=== PATIENT | male | born 1935 | race Caucasian/White ===

== ENCOUNTER 2017-01-29 15:38 | Inpatient (IN) | payer OTHER, MEDICARE ==
[~2017-01-29] VITALS: Ht 177.8 cm; Wt 79.9 kg
[2017-01-29] MEDS ORDERED: SODIUM CHLORIDE 0.9% FLUSH 10 ML FLUSH IVF PRN (16:45)
[2017-01-29] MEDS ORDERED: FUROSEMIDE 40 MG/4 ML VIAL IVP ONE (16:45)
[2017-01-29 16:50] VITALS: BP 108/68; RESP 22
--- NOTE | 2017-01-29 16:59 | PD ---
HPI Chief Complaint: Respiratory Distress Time Seen by Provider: 16:36 Travel History International Travel<30 days: No Contact w/Intl Traveler<30days: No Traveled to known affect area: No History of Present Illness HPI The patient is a 81-year-old [place] male who presents to the emergency department via EMS for shortness of breath and altered mental status. The patient is a somewhat poor historian, is oriented to name, but not month, year, or place. According to EMS the patient was riding around with the family member doing errands throughout the day, with shortness of breath progressively worsened. The patient is unsure if he has any history of congestive heart failure, states he quit smoking several years ago, and has no history of COPD. The patient denies being on oxygen at home. The patient does admit to be mildly short of breath, but denies any chest pain, nausea, vomiting, or abdominal pain. The patient states he has a history of chronic edema to lower extremities, denies any known history of pulmonary embolism or DVT. However, patient is a poor historian. He does not know his current medications or allergies. [facility] Past Medical History Medical History: Unable to Obtain ?: Not Past Surgical History Surgical History: Unable to Obtain Social History Tobacco Use: No (states he quit smoking "years ago ".) Allergies-Medications (Allergen,Severity, Reaction): Coded Allergies: UNOBTAINABLE (Unverified , 01/29/17) Does not know drug allergies--AMS Review of Systems ROS Limitations: Poor Historian Except as stated in HPI: all other systems reviewed are Neg General / Constitutional: No: Fever HENT: No: Sore Throat Cardiovascular: No: Chest Pain or Discomfort Respiratory: Positive: Shortness of Breath Gastrointestinal: No: Nausea, Vomiting, Abdominal Pain Musculoskeletal: Positive: Edema Physical Exam Narrative GENERAL: Awake, alert, pleasant 81-year-old male who appears his stated age and is in no acute respiratory distress. SKIN: Focused skin assessment warm/dry. HEAD: Atraumatic. Normocephalic. EYES: No injection or drainage. ENT: No nasal bleeding or discharge. Mucous membranes pink and moist. NECK: Trachea midline. No JVD. CARDIOVASCULAR: Regular rate and rhythm. No murmur appreciated. Pacemaker in place left chest wall. Well-healed surgical scar midline. RESPIRATORY: Tachypnea with a respiratory rate of 22. Diminished breath sounds in the bases bilateral with crackles. GASTROINTESTINAL: Abdomen soft, edematous with edema noted over the lateral aspect. Well-healed midline scar. MUSCULOSKELETAL: Edema noted to lower extremities all the way to the hips. Right leg is more swollen than the left leg. Edema of the low back noted. NEUROLOGICAL: Awake and alert. No obvious cranial nerve deficits. Motor grossly within normal limits. Normal speech. Poor historian, knows name, but does not know the current month, year, or location. PSYCHIATRIC: Appears pleasantly confused. Data Data Last Documented VS Vital Signs Date Time Temp Pulse Resp B/P Pulse Ox O2 Delivery O2 Flow Rate FiO2 01/29/17 17:05 73 22 104/69 95 Nasal Cannula 4 Orders Complete Blood Count With Diff (01/29/17 16:44) Comprehensive Metabolic Panel (01/29/17 16:44) B-Type Natriuretic Peptide (01/29/17 16:44) Act Partial Throm Time (Ptt) (01/29/17 16:44) Prothrombin Time / Inr (Pt) (01/29/17 16:44) Magnesium (Mg) (01/29/17 16:44) Ckmb (Isoenzyme) Profile (01/29/17 16:44) Troponin I (01/29/17 16:44) Urinalysis - C+S If Indicated (01/29/17 16:44) Blood Culture (01/29/17 16:44) Iv Access Insert/Monitor (01/29/17 16:44) Electrocardiogram (01/29/17 16:44) Ecg Monitoring (01/29/17 16:44) Oximetry (01/29/17 16:44) Oxygen Administration (01/29/17 16:44) Chest, Single Ap (01/29/17 16:44) Us Leg Venous Doppler (01/29/17 16:44) Sodium Chloride 0.9% Flush (Ns Flush) (01/29/17 16:45) Furosemide Inj (Lasix Inj) (01/29/17 16:45) Lactic Acid (01/29/17 17:33) Ceftriaxone Inj (Rocephin Inj) (01/29/17 17:45) Azithromycin Inj (Zithromax Inj) (01/29/17 17:45) Aspirin Chew (Aspirin Chew) (01/30/17 09:00) CKMB (01/29/17 17:10) CKMB% (01/29/17 17:10) Labs Laboratory Tests Test 01/29/17 17:10 White Blood Count 3.7 TH/MM3 Red Blood Count 3.81 MIL/MM3 Hemoglobin 12.5 GM/DL Hematocrit 38.4 % Mean Corpuscular Volume 100.7 FL Mean Corpuscular Hemoglobin 32.7 PG Mean Corpuscular Hemoglobin 32.5 % Concent Red Cell Distribution Width 19.8 % Platelet Count 92 TH/MM3 Mean Platelet Volume 8.7 FL Neutrophils (%) (Auto) 81.6 % Lymphocytes (%) (Auto) 6.8 % Monocytes (%) (Auto) 9.0 % Eosinophils (%) (Auto) 0.4 % Basophils (%) (Auto) 2.2 % Neutrophils # (Auto) 3.0 TH/MM3 Lymphocytes # (Auto) 0.2 TH/MM3 Monocytes # (Auto) 0.3 TH/MM3 Eosinophils # (Auto) 0.0 TH/MM3 Basophils # (Auto) 0.1 TH/MM3 CBC Comment AUTO DIFF Prothrombin Time 16.4 SEC Prothromb Time International 1.5 RATIO Ratio Activated Partial 28.5 SEC Thromboplast Time Sodium Level 141 MEQ/L Potassium Level 4.7 MEQ/L Chloride Level 106 MEQ/L Carbon Dioxide Level 26.0 MEQ/L Anion Gap 9 MEQ/L Blood Urea Nitrogen 43 MG/DL Creatinine 2.55 MG/DL Estimat Glomerular Filtration 24 ML/MIN Rate Random Glucose 78 MG/DL Calcium Level 8.7 MG/DL Magnesium Level 2.0 MG/DL Total Bilirubin 1.9 MG/DL Aspartate Amino Transf 26 U/L (AST/SGOT) Alanine Aminotransferase 21 U/L (ALT/SGPT) Alkaline Phosphatase 54 U/L Total Creatine Kinase 129 U/L Troponin I 1.76 NG/ML B-Type Natriuretic Peptide 3224 PG/ML Total Protein 6.5 GM/DL Albumin 2.8 GM/DL [facility] Medical Decision Making Medical Screen Exam Complete: Yes Emergency Medical Condition: Yes Medical Record Reviewed: Yes Interpretation(s) EKG reveals electronic atrial pacemaker an electronic ventricular pacemaker with a rate of 75. No further analysis performed. Laboratory Tests Test 01/29/17 17:10 White Blood Count 3.7 TH/MM3 Red Blood Count 3.81 MIL/MM3 Hemoglobin 12.5 GM/DL Hematocrit 38.4 % Mean Corpuscular Volume 100.7 FL Mean Corpuscular Hemoglobin 32.7 PG Mean Corpuscular Hemoglobin 32.5 % Concent Red Cell Distribution Width 19.8 % Platelet Count 92 TH/MM3 Mean Platelet Volume 8.7 FL Neutrophils (%) (Auto) 81.6 % Lymphocytes (%) (Auto) 6.8 % Monocytes (%) (Auto) 9.0 % Eosinophils (%) (Auto) 0.4 % Basophils (%) (Auto) 2.2 % Neutrophils # (Auto) 3.0 TH/MM3 Lymphocytes # (Auto) 0.2 TH/MM3 Monocytes # (Auto) 0.3 TH/MM3 Eosinophils # (Auto) 0.0 TH/MM3 Basophils # (Auto) 0.1 TH/MM3 CBC Comment AUTO DIFF Prothrombin Time 16.4 SEC Prothromb Time International 1.5 RATIO Ratio Activated Partial 28.5 SEC Thromboplast Time Sodium Level 141 MEQ/L Potassium Level 4.7 MEQ/L Chloride Level 106 MEQ/L Carbon Dioxide Level 26.0 MEQ/L Anion Gap 9 MEQ/L Blood Urea Nitrogen 43 MG/DL Creatinine 2.55 MG/DL Estimat Glomerular Filtration 24 ML/MIN Rate Random Glucose 78 MG/DL Calcium Level 8.7 MG/DL Magnesium Level 2.0 MG/DL Total Bilirubin 1.9 MG/DL Aspartate Amino Transf 26 U/L (AST/SGOT) Alanine Aminotransferase 21 U/L (ALT/SGPT) Alkaline Phosphatase 54 U/L Total Creatine Kinase 129 U/L Troponin I 1.76 NG/ML B-Type Natriuretic Peptide 3224 PG/ML Total Protein 6.5 GM/DL Albumin 2.8 GM/DL Last Impressions Chest X-Ray 01/29/17 1644 Signed Impressions: Service Date/Time: Sunday, January 29, 2017 16:53 - CONCLUSION: Basilar consolidation, effusions and possible loculated effusion versus mass right lung base. Ranjith Ortiz MD Differential Diagnosis Differential diagnosis includes anasarca, ascites, pleural effusion, pulmonary embolism, congestive heart failure, pneumonia, bronchitis, hypoxia. Narrative Course IV was established, labs are drawn and sent, and the patient was placed on cardiac telemetry monitoring and continuous pulse oximetry monitoring. Chest x- ray was obtained. EKG was ordered and interpreted. The patient was administered Lasix 40 mg intravenously. Ultrasound of the right lower extremity was ordered. Chest x-ray reveals basilar consolidations and effusions. The patient was treated prophylactically for pneumonia while laboratory evaluation was pending. The patient's white count is mildly low. Troponin was elevated at 1.76, EKG is unhelpful as a reveals electronically paced rhythm. The patient denies any chest pain, does have shortness breath, but is a poor historian. There is no old EMR to compare his current labs. Cardiology was paged in regards to elevated troponin and BNP to evaluate if patient needs anticoagulation with Lovenox/Heparin. After discussion it was agreed we would not place the patient on Lovenox or heparin until further information was obtainable. We attempted to call family members, apparently there will be a family member who will arrive around 6:20 PM. The patient will be admitted to [facility] and the medical service. Physician Communication Physician Communication I discussed the patient with Dr. Banerjee who agrees with admission. I also discussed the patient with Dr. Hamilton. Diagnosis Primary Impression: NSTEMI (non-ST elevated myocardial infarction) Additional Impressions: Congestive heart failure Qualified Code: I50.9 - Congestive heart failure, unspecified congestive heart failure chronicity, unspecified congestive heart failure type Pleural effusion Admitting Information Admitting Physician Requests: Admit Condition: Stable Raul Hughes MD Jan 29, 2017 16:58
[2017-01-29 17:05] VITALS: BP 104/69; PULSE 73; RESP 22; O2SAT 95
[2017-01-29 17:17] LABS: BASOPHIL # 0.1 TH/MM3 (0-0.2); BASOPHIL % 2.2 % (0.0-2.0); EOSINOPHIL % 0.4 % (0.0-4.0); HEMATOCRIT 38.4 % (39.0-51.0); LYMPH % 6.8 % (9.0-44.0); LYMPHOCYTE # 0.2 TH/MM3 (1.0-4.8); MEAN CELL VOLUME 100.7 FL (80.0-100.0); MEAN CORPUSCULAR HEMOGLOBIN 32.7 PG (27.0-34.0); MEAN CORPUSCULAR HGB CONC 32.5 % (32.0-36.0); NEUT % 81.6 % (16.0-70.0); PLATELET COUNT 92 TH/MM3 (150-450); RED BLOOD COUNT 3.81 MIL/MM3 (4.50-5.90); RED CELL DISTRIBUTION WIDTH 19.8 % (11.6-17.2); WHITE BLOOD COUNT 3.7 TH/MM3 (4.0-11.0)
--- NOTE | 2017-01-29 17:23 | RADRPT ---
EXAM DATE/TIME: 01/29/2017 16:53 [facility] COMPARISON: No previous studies available for comparison. INDICATIONS : Shortness of breath. MEDICAL HISTORY : None. SURGICAL HISTORY : Pacemaker. CABG. ENCOUNTER: Initial ACUITY: 1 day PAIN SCORE: 0/10 LOCATION: Bilateral chest FINDINGS: There are bilateral effusions including a probable loculated effusion on the right. It is difficult t o exclude a right lung base mass versus pseudotumor. Cardiomegaly is present. A vascular clip overlie s the mediastinum. Aortic calcification, skin on the wires, and pacer/ICD device identified. There is consolidation at the bases. CONCLUSION: Basilar consolidation, effusions and possible loculated effusion versus mass right lung base. Ranjith Ortiz MD on January 29, 2017 at 17:21 Board Certified Radiologist. This report was verified electronically.
[2017-01-29 17:27] LABS: HEMO FLAGS AUTO DIFF
[2017-01-29 17:28] LABS: APTT (PATIENT) 28.5 SEC (24.3-30.1); INTERNATIONAL NORMALIZED RATIO 1.5 RATIO; PROTHROMBIN TIME - PATIENT 16.4 SEC (9.8-11.6)
[2017-01-29 17:42] LABS: ALKALINE PHOSPHATASE 54 U/L (45-117); ALT (GPT) 21 U/L (12-78); ANION GAP 9 MEQ/L (5-15); AST (GOT) 26 U/L (15-37); BLOOD UREA NITROGEN 43 MG/DL (7-18); CHLORIDE 106 MEQ/L (98-107); CREATINE KINASE 129 U/L (39-308); GLOMERULAR FILTRATION RATE 24 ML/MIN (>89); SODIUM (NA) 141 MEQ/L (136-145); TOTAL BILIRUBIN ADULT 1.9 MG/DL (0.2-1.0)
[2017-01-29 17:43] LABS: POTASSIUM 4.7 MEQ/L (3.5-5.1)
[2017-01-29] MEDS ORDERED: cefTRIAXone INJ 1,000 MG in SODIUM CHLORIDE 0.9% INJ 100 ML IV ONE (17:45)
[2017-01-29] MEDS ORDERED: AZITHROMYCIN INJ 500 MG in SODIUM CHLOR 0.9% 250 ML INJ 250 ML IV ONE (17:45)
[2017-01-29 17:55] LABS: CRENATED RBCS 1+ (NORMAL); KERATOCYTES 1+ (NORMAL); OVALOCYTES 1+ (NORMAL); PLATELET ESTIMATE SMEAR LOW (NORMAL); PLATELET MORPHOLOGY NORMAL (NORMAL); SCAN/DIFF AUTO DIFF CONFIRMED
[2017-01-29 17:59] LABS: CKMB 1.5 NG/ML (0.5-3.6)
--- NOTE | 2017-01-29 18:28 | RADRPT ---
EXAM DATE/TIME: 01/29/2017 17:12 [facility] COMPARISON: No previous studies available for comparison. INDICATIONS : Right leg swelling. MEDICAL HISTORY : Right leg swelling. Shortness of breath. SURGICAL HISTORY : Unable to obtain. ENCOUNTER: Initial ACUITY: 1 day PAIN SCORE: 110 LOCATION: Right leg. TECHNIQUE: Venous ultrasound of the leg was performed from the inguinal ligament to the proximal calf. Real-lena e, color Doppler and spectral tracing, compression and augmentation techniques were used. FINDINGS: There is normal compressibility of the deep venous system from the inguinal region to the proximal ca lf. No echogenic clot is seen in the lumen of the common femoral, femoral, popliteal, and posterior tibial veins. There is a normal response of the venous system to proximal and distal augmentation an d respiration. CONCLUSION: Normal examination. Benny Sharp MD on January 29, 2017 at 18:26 Board Certified Radiologist. This report was verified electronically.
[2017-01-29] MEDS ORDERED: ASPIRIN 81 MG CHEW TAB CHEW ONE (18:30)
[2017-01-29] MEDS: SODIUM CHLORID 0.9% 500 ML INJ 500 ML IV ONE ×2 (19:30→20:18)
--- NOTE | 2017-01-29 20:11 | HHI.HP ---
HPI Service [facility] Primary Care Physician Non-Staff Admission Diagnosis NSTEMI, CHF, dyspnea, renal insufficiency Diagnoses: (1) NSTEMI (non-ST elevated myocardial infarction) Diagnosis: Principal (2) CHF (congestive heart failure) Diagnosis: Principal (3) PNA (pneumonia) Diagnosis: Principal (4) Hypoxia Diagnosis: Principal (5) Lactic acidosis Diagnosis: Principal (6) Lung mass Diagnosis: Principal (7) Hypotension Diagnosis: Principal (8) Renal insufficiency Diagnosis: Principal (9) Pancytopenia Diagnosis: Principal Travel History International Travel<30 Days: No Contact w/Intl Traveler <30 Da: No Traveled to Known Affected Are: No History of Present Illness This is an 81-year-old male with w/ a PMH of HTN, Hyperlipidemia and CHF ( Unknown EF) who was brought to the ER by EMS secondary to AMS and SOB. History difficult to obtain from patient. Per EMS, family noted patient to have progressive SOB throughout the day. No reported fever, chills or chest pain. On arrival, O2 reportedly 70% on RA, currently 95% on 4L NC. BP 108/68, HR 73, Afebrile. While in ER, transient episode of hypotension w/ BP 80's systolic. WBC 3.7. Platelets 92. Hgb 12.5, no previous labs for comparison. Creatinine 2.55. Lactic Acid 2.8. Trop 1.76. BNP 3224. INR 1.5. U/a negative. Noted to have lower extremity edema, LE Doppler negative for DVT. CXR with basilar consolidation, effusions and possible loculated effusion versus mass right lung base. Dr. Hamilton consulted by ER physician, recommended holding off on anticoagulation for the moment. Review of Systems Except as stated in HPI: all other systems reviewed are Neg ROS: 14 point review of systems otherwise negative. Past Family Social History Past Medical History PMH: HTN, Hyperlipidemia and CHF (Unknown EF) Past Surgical History PAST SURGICAL HISTORY: Unknown Allergies: Coded Allergies: No Known Allergies (Unverified , 01/29/17) Family History PAST FAMILY HISTORY: Reviewed. No h/o DM or CAD Social History PAST SOCIAL HISTORY: Negative for alcohol, tobacco or drugs. Physical Exam Vital Signs Vital Signs Date Time Temp Pulse Resp B/P Pulse Ox O2 Delivery O2 Flow Rate FiO2 01/29/17 17:05 73 22 104/69 95 Nasal Cannula 4 01/29/17 17:05 95 Nasal Cannula 4 01/29/17 16:50 22 108/68 Nasal Cannula 4 01/29/17 16:50 95 Nasal Cannula 4 Physical Exam PE: GENERAL: Elderly, chronically ill-appearing black male in no acute distress. HEENT: PERRLA, EOMI. No scleral icterus or conjunctival pallor. No lid lag or facial droop. CARDIOVASCULAR: Regular rate and rhythm. No obvious murmurs to auscultation. No chest tenderness to palpation. RESPIRATORY: No obvious rhonchi or wheezing. Clear to auscultation. Breath sounds equal bilaterally. GASTROINTESTINAL: Abdomen soft, non-tender, nondistended. BS normal. MUSCULOSKELETAL: Extremities without clubbing, cyanosis. +2 pitting edema bilaterally. No obvious deformities. NEUROLOGICAL: Awake, alert and oriented to person only. No focal neurologic deficits. Moving both upper and lower extremities spontaneously. Laboratory Laboratory Tests Test 01/29/17 01/29/17 17:10 17:40 White Blood Count 3.7 Red Blood Count 3.81 Hemoglobin 12.5 Hematocrit 38.4 Mean Corpuscular Volume 100.7 Mean Corpuscular Hemoglobin 32.7 Mean Corpuscular Hemoglobin 32.5 Concent Red Cell Distribution Width 19.8 Platelet Count 92 Mean Platelet Volume 8.7 Neutrophils (%) (Auto) 81.6 Lymphocytes (%) (Auto) 6.8 Monocytes (%) (Auto) 9.0 Eosinophils (%) (Auto) 0.4 Basophils (%) (Auto) 2.2 Neutrophils # (Auto) 3.0 Lymphocytes # (Auto) 0.2 Monocytes # (Auto) 0.3 Eosinophils # (Auto) 0.0 Basophils # (Auto) 0.1 CBC Comment AUTO DIFF Differential Comment AUTO DIFF CONFIRMED Platelet Estimate LOW Platelet Morphology Comment NORMAL Ovalocytes 1+ Crenated Cell 1+ Keratocytes 1+ Prothrombin Time 16.4 Prothromb Time International 1.5 Ratio Activated Partial 28.5 Thromboplast Time Sodium Level 141 Potassium Level 4.7 Chloride Level 106 Carbon Dioxide Level 26.0 Anion Gap 9 Blood Urea Nitrogen 43 Creatinine 2.55 Estimat Glomerular Filtration 24 Rate Random Glucose 78 Calcium Level 8.7 Magnesium Level 2.0 Total Bilirubin 1.9 Aspartate Amino Transf 26 (AST/SGOT) Alanine Aminotransferase 21 (ALT/SGPT) Alkaline Phosphatase 54 Total Creatine Kinase 129 Creatine Kinase MB 1.5 Troponin I 1.76 B-Type Natriuretic Peptide 3224 Total Protein 6.5 Albumin 2.8 Lactic Acid Level 2.8 Date/Time Procedure Status Source Growth 01/29/17 17:10 Aerobic Blood Culture Received Blood Peripheral Pending 01/29/17 17:10 Anaerobic Blood Culture Received Blood Peripheral Pending Result Diagram: 01/29/17 17101/29/17 171 Assessment and Plan Problem List: (1) NSTEMI (non-ST elevated myocardial infarction) ICD Code: I21.4 Status: Acute (2) CHF (congestive heart failure) ICD Code: I50.9 Status: Acute (3) Lactic acidosis ICD Code: E87.2 Status: Acute (4) Lung mass ICD Code: R91.8 Status: Acute (5) Hypotension ICD Code: I95.9 Status: Acute (6) PNA (pneumonia) ICD Code: J18.9 Status: Acute (7) Hypoxia ICD Code: R09.02 Status: Acute (8) Pancytopenia ICD Code: D61.818 Status: Acute (9) Renal insufficiency ICD Code: N28.9 Status: Acute Assessment and Plan A/P: 1. NSTEMI: Trop 1.67, EKG w/ no acute ischemia. No c/o chest pain. Dr. Hamilton consulted by ER physician, recommendation to hold off on anticoagulation in light of thrombocytopenia. Will admit to [facility], telemetry, check serial cardiac enzymes. Cardiology to follow. Morphine/NTG prn if needed, no active chest pain at this time. Possibly due to renal insufficiency. 2. CHF: Apparent h/o CHF, EF unknown. +LE edema, BNP 3224, CXR w/ basilar effusions, images reviewed by me. S/p Lasix 40mg IV x1, caution w/ diuresis in light of dehydration/acidosis and hypotension. 3. Lactic Acidosis: Lactate 2.8. +PNA on CXR w/ basilar consolidations, images reviewed, however no evidence of sepsis. Likely combination of dehydration and acute infection. IVF-caution w/ CHF, repeat Lactate 4. PNA: CXR w/ bibasilar consolidations and possible loculated effusion vs mass. S/p Rocephin/Zithro in ER. Continue w/ IV Abx, DuoNeb prn. 5. Hypoxia: Resolved. O2 sat 70's on arrival, currently 95% on 4L NC. Likely multifactorial-CHF/PNA. Monitor O2. 6. Lung Mass: CXR w/ questionable lung mass vs loculated effusion, images reviewed as above. Check CT Chest further eval, no contrast due to renal insufficiency. 7. Hypotension: Resolved. BP 80's systolic while in ER. S/p 500ml bolus, will monitor BP, continue w/ IVF for hydration-caution w/ CHF. 8. Pancytopenia: WBC 3.7, Hgb 12.5, Platelets 92, no previous labs for comparison. Will monitor. Hold anticoagulation in light of thrombocytopenia. 9. Renal Insufficiency: Creatinine 2.55, no previous labs for comparison. U/ a negative. IVF-caution w/ CHF, repeat labs in am. 10. DVT Prophylaxis: SCD/Teds. 11. Social work for d/c planning as needed. 12. Case discussed w/ ER physician at length Physician Certification 2 Midnight Certification Type: Admission for Inpatient Services Order for Inpatient Services The services are ordered in accordance with Medicare regulations or non- Medicare payer requirements, as applicable. In the case of services not specified as inpatient-only, they are appropriately provided as inpatient services in accordance with the 2-midnight benchmark. Estimated LOS (days): 2 days is the estimated time the patient will need to remain in the hospital, assuming treatment plan goals are met and no additional complications. Post-Hospital Plan: Not yet determined Cookie Moraes MD Jan 29, 2017 20:11
[2017-01-29 20:15] VITALS: BP 98/62; PULSE 73; RESP 16; O2SAT 100
[2017-01-29] MEDS ORDERED: BISACODYL 10 MG SUPP RECTAL PRN (20:15)
[2017-01-29] MEDS ORDERED: ACETAMINOPHEN/HYDROcodone 325 MG/5 MG TAB PO PRN (20:15)
[2017-01-29] MEDS ORDERED: SODIUM CHLORIDE 0.9% FLUSH 10 ML FLUSH IV FLUSH PRN (20:15)
[2017-01-29] MEDS ORDERED: ONDANSETRON HCL 4 MG/2 ML VIAL IVP PRN (20:15)
[2017-01-29] MEDS ORDERED: ACETAMINOPHEN 325 MG TAB PO PRN (20:15)
[2017-01-29] MEDS ORDERED: MORPHINE SULFATE 4 MG/ML INJ IV PRN (20:15)
[2017-01-29] MEDS: SODIUM CHLORIDE 0.9% FLUSH 10 ML FLUSH IV FLUSH SCH (20:18)
[2017-01-29] MEDS: cefTRIAXone INJ 1,000 MG in SODIUM CHLORIDE 0.9% INJ 100 ML IV SCH (20:19)
[2017-01-29] MEDS: SODIUM CHLOR 0.9% 1000 ML INJ 1,000 ML IV SCH (20:40)
[2017-01-29] MEDS ORDERED: ATOR40TA16 PO (20:48)
[2017-01-29] MEDS ORDERED: AMLO5TAB2 PO (20:48)
[2017-01-29] MEDS ORDERED: CARV25TA PO (20:48)
[2017-01-29] MEDS ORDERED: FURO20TA PO (20:48)
[2017-01-29] MEDS ORDERED: RANI150T PO (20:48)
[2017-01-29 21:09] LABS: BLOOD, URINE NEG (NEG); COMMENT (UR) CULT NOT INDICATED; CULTURE IF INDICATED CULT NOT INDICATED; GLUCOSE,URINE NEG (NEG); HYALINE CAST, URINE 22 /lpf (RARE); KETONE, URINE NEG (NEG); NITRITE,URINE NEG (NEG); SQUAMOUS EPITHELIAL CELL URINE <1 /hpf (0-5); URINE COLOR YELLOW (YELLW/STRAW)
[2017-01-29] MEDS: AZITHROMYCIN INJ 500 MG in SODIUM CHLOR 0.9% 250 ML INJ 250 ML IV SCH (21:17)
[2017-01-29 21:19] VITALS: O2SAT 99
[2017-01-29] MEDS ORDERED: SYNT25TA PO (22:56)
[2017-01-29 23:00] VITALS: BP 103/73; PULSE 75; RESP 16; TEMP 98.2; O2SAT 97
[2017-01-30] VITALS (25 sets, daily range): BP systolic 100–108; BP diastolic 65–71; PULSE 73–75; RESP 12–16; TEMP 97.4–98.5; O2SAT 91–98
[2017-01-30 06:27] LABS: AUTOMATED NEUTROPHIL # 3.2 TH/MM3 (1.8-7.7); BASOPHIL % 0.6 % (0.0-2.0); EOSINOPHIL % 0.2 % (0.0-4.0); HEMATOCRIT 36.5 % (39.0-51.0); LYMPH % 6.6 % (9.0-44.0); LYMPHOCYTE # 0.3 TH/MM3 (1.0-4.8); MEAN CELL VOLUME 101.1 FL (80.0-100.0); MEAN CORPUSCULAR HEMOGLOBIN 33.3 PG (27.0-34.0); MEAN CORPUSCULAR HGB CONC 32.9 % (32.0-36.0); NEUT % 81.6 % (16.0-70.0); PLATELET COUNT 85 TH/MM3 (150-450); RED BLOOD COUNT 3.61 MIL/MM3 (4.50-5.90); RED CELL DISTRIBUTION WIDTH 19.7 % (11.6-17.2); WHITE BLOOD COUNT 3.9 TH/MM3 (4.0-11.0)
[2017-01-30 06:31] LABS: HEMO FLAGS AUTO DIFF
[2017-01-30 07:01] LABS: ALKALINE PHOSPHATASE 50 U/L (45-117); ALT (GPT) 21 U/L (12-78); ANION GAP 10 MEQ/L (5-15); AST (GOT) 27 U/L (15-37); BICARBONATE 25.1 MEQ/L (21.0-32.0); BLOOD UREA NITROGEN 47 MG/DL (7-18); CHLORIDE 109 MEQ/L (98-107); GLOMERULAR FILTRATION RATE 27 ML/MIN (>89); POTASSIUM 4.6 MEQ/L (3.5-5.1); SODIUM (NA) 144 MEQ/L (136-145); TOTAL BILIRUBIN ADULT 1.2 MG/DL (0.2-1.0)
[2017-01-30 07:35] LABS: BANDS 3 % (0-6); BASOPHILS 1 % (0-2); NEUTROPHIL # MANUAL DIFF 3.4 TH/MM3 (1.8-7.7); OVALOCYTES 1+ (NORMAL); PLATELET ESTIMATE SMEAR LOW (NORMAL); PLATELET MORPHOLOGY NORMAL (NORMAL); POLYS (SEG NEUTROPHILS) 84 % (16-70); SCAN/DIFF FINAL DIFF MANUAL; WBC DIFF SAMPLE 100
[2017-01-30 07:36] LABS: ACANTHOCYTES OCC (NORMAL)
--- NOTE | 2017-01-30 08:39 | RADRPT ---
EXAM DATE/TIME: 01/30/2017 08:08 [facility] COMPARISON: CHEST SINGLE AP, January 29, 2017, 16:53. INDICATIONS : Evaluate for mass. RADIATION DOSE: 5.95 CTDIvol (mGy) MEDICAL HISTORY : Carcinoma, prostate. SURGICAL HISTORY : Pacemaker. CABG ENCOUNTER: Initial ACUITY: 1 day PAIN SCALE: 0/10 LOCATION: Bilateral chest TECHNIQUE: Volumetric scanning of the chest was performed. Using automated exposure control and adjustment of t he mA and/or kV according to patient size, radiation dose was kept as low as reasonably achievable to obtain optimal diagnostic quality images. FINDINGS: There is diffuse anasarca with moderate bilateral pleural effusions partially loculated into the major fissure on the right side. There is parenchymal consolidation in the left lung base with airsp david process in the right upper lobe in addition to atelectasis and/or infiltrate in the right lower l obe and lingula. There are atherosclerotic calcifications of the aorta due to chronic atherosclerotic disease. 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 CONCLUSION: 1. Anasarca and bilateral pleural effusions. 2. Bilateral parenchymal infiltrates and consolidations. 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 Valerie Germain MD on January 30, 2017 at 8:34 Board Certified Radiologist. This report was verified electronically.
[2017-01-30] MEDS: SODIUM CHLORIDE 0.9% FLUSH 10 ML FLUSH IV FLUSH SCH ×2 (08:40→20:58)
[2017-01-30] MEDS: SODIUM CHLOR 0.9% 1000 ML INJ 1,000 ML IV SCH ×2 (08:45→20:58)
[2017-01-30] MEDS ORDERED: ASPIRIN 81 MG CHEW TAB CHEW SCH (09:00)
[2017-01-30] MEDS: RESP: ALBUTEROL 2.5 MG/IPRATROPIUM 0.5 MG NEB (PRN) NEB ×2 (09:38→12:57)
--- NOTE | 2017-01-30 10:30 | HHI.PR ---
Subjective Remarks in no acute distress. denies chest pain. has occasional cough. no fever. Objective Vitals Vital Signs Date Time Temp Pulse Resp B/P Pulse Ox O2 Delivery O2 Flow Rate FiO2 01/30/17 09:41 95 Nasal Cannula 2.00 01/30/17 08:00 75 01/30/17 08:00 94 Nasal Cannula 2.00 01/30/17 08:00 97.6 75 16 105/70 94 01/30/17 06:00 75 01/30/17 05:00 75 01/30/17 04:00 75 01/30/17 03:00 98.5 75 12 108/65 98 01/30/17 03:00 75 01/30/17 02:00 75 01/30/17 01:00 75 01/30/17 00:00 75 01/29/17 23:00 98 Nasal Cannula 2.00 01/29/17 23:00 98.2 75 16 103/73 97 01/29/17 23:00 75 01/29/17 21:19 99 Nasal Cannula 4.00 01/29/17 20:15 73 16 98/62 100 Nasal Cannula 3 01/29/17 17:05 73 22 104/69 95 Nasal Cannula 4 01/29/17 17:05 95 Nasal Cannula 4 01/29/17 16:50 22 108/68 Nasal Cannula 4 01/29/17 16:50 95 Nasal Cannula 4 I/O 01/29/17 01/29/17 01/29/17 01/30/17 01/30/17 01/30/17 07:00 15:00 23:00 07:00 15:00 23:00 Intake Total 640 ml Output Total 250 ml Balance 390 ml Intake Oral 240 ml IV Total 400 ml Output Urine Total 250 ml # Bowel Movements 0 Result Diagram: 01/30/17 0548 01/30/17 0548 Imaging Last Impressions Chest CT 01/30/17 0000 Signed Impressions: Service Date/Time: Monday, January 30, 2017 08:08 - CONCLUSION: 1. Anasarca and bilateral pleural effusions. 2. Bilateral parenchymal infiltrates and consolidations. 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 Valerie Germain MD Lower Extremity Ultrasound 01/29/17 1644 Signed Impressions: Service Date/Time: Sunday, January 29, 2017 17:12 - CONCLUSION: Normal examination. Benny Sharp MD Chest X-Ray 01/29/17 1840 Signed Impressions: Service Date/Time: Sunday, January 29, 2017 16:53 - CONCLUSION: Basilar consolidation, effusions and possible loculated effusion versus mass right lung base. Ranjith Ortiz MD Objective Remarks GENERAL: This is a well-nourished, well-developed patient, in no apparent distress. CARDIOVASCULAR: Regular rate and regular rhythm without murmurs, gallops, or rubs. RESPIRATORY: Clear to auscultation. Breath sounds equal bilaterally. No wheezes , rales, or rhonchi. GASTROINTESTINAL: Abdomen soft, non-tender, nondistended. Normal, active bowel sounds MUSCULOSKELETAL: Extremities without clubbing, cyanosis, or edema. NEURO: Awake and alert. Medications and IVs Current Medications Sodium Chloride (NS Flush) 2 ml UNSCH PRN IVF FLUSH AFTER USING IV ACCESS; Start 01/29/17 at 16:45; Stop 01/29/17 at 20:16; Status DC Furosemide 40 mg 40 mg ONCE ONCE IVP Last administered on 01/29/17 17:50; Start 01/29/17 at 16:45; Stop 01/29/17 at 16:50; Status DC Ceftriaxone Sodium 1000 mg/ Sodium Chloride 100 ml @ 200 mls/hr ONCE ONCE IV Last administered on 01/29/17 18:28; Start 01/29/17 at 17:45; Stop 01/29/17 at 18:14; Status DC Azithromycin/ Sodium Chloride (Zithromax Inj/ NS 250 ml Inj) 250 ml @ 250 mls/ hr ONCE ONCE IV Last administered on 01/29/17 18:00; Start 01/29/17 at 17:45 ; Stop 01/29/17 at 18:44; Status DC Aspirin (Aspirin Chew) 162 mg DAILY CHEW ; Start 01/30/17 at 09:00; Stop at 09:00; Status DC Aspirin 162 mg 162 mg ONCE ONCE CHEW Last administered on 01/29/17 18:32; Start 01/29/17 at 18:30; Stop 01/29/17 at 18:31; Status DC Sodium Chloride 500 ml @ 500 mls/hr BOLUS ONCE IV ; Start 01/29/17 at 19:30; Stop 01/29/17 at 20:29; Status DC Ceftriaxone Sodium 1000 mg/ Sodium Chloride 100 ml @ 200 mls/hr Q24H IV ; Start 01/30/17 at 20:00 Azithromycin/ Sodium Chloride (Zithromax Inj/ NS 250 ml Inj) 250 ml @ 250 mls/ hr Q24H IV ; Start 01/30/17 at 21:00 Albuterol/ Ipratropium (Duoneb Neb) 1 ampule Q4HR NEB PRN NEB SOB/WHEEZING Last administered on 01/30/17 09:38; Start 01/29/17 at 20:15 Sodium Chloride (NS Flush) 2 ml UNSCH PRN IV FLUSH FLUSH AFTER USING IV ACCESS ; Start 01/29/17 at 20:15 Sodium Chloride (NS Flush) 2 ml BID IV FLUSH Last administered on 01/30/17 08: 40; Start 01/29/17 at 21:00 Ondansetron HCl (Zofran Inj) 4 mg Q6H PRN IVP NAUSEA OR VOMITING; Start at 20:15 Bisacodyl (Dulcolax Supp) 10 mg DAILY PRN RECTAL CONSTIPATION; Start 01/29/17 at 20:15 Acetaminophen (Tylenol) 650 mg Q6H PRN PO FEVER/PAIN SCALE 1 TO 2; Start at 20:15 Acetaminophen/ Hydrocodone Bitart ([place] 5-325 Mg) 1 tab Q4H PRN PO PAIN SCALE 3 TO 5; Start 01/29/17 at 20:15 Morphine Sulfate 4 mg 4 mg Q3H PRN IV Pain 6-10; Start 01/29/17 at 20:15 Sodium Chloride (NS 1000 ml Inj) 1,000 ml @ 80 mls/hr [id number] IV Last administered on 01/29/17 20:40; Start 01/29/17 at 20:15 A/P Assessment and Plan A/P 1. NSTEMI: No c/o chest pain. Dr. Hamilton consulted by ER physician, recommendation to hold off on anticoagulation in light of thrombocytopenia. 2. CHF: Apparent h/o CHF, EF unknown. +LE edema, BNP 3224, CXR w/ basilar effusions. S/p Lasix 40mg IV x1, caution w/ diuresis in light of dehydration/ acidosis and hypotension. 3. Lactic Acidosis: Lactate 2.8. +PNA on CXR w/ basilar consolidations. Likely combination of dehydration and acute infection. IVF-caution w/ CHF. 4. PNA: continue Rocephin/Zithro . neb treatment- 5. Hypoxia: Resolved. O2 sat 70's on arrival, currently 95% on 4L NC. Likely multifactorial-CHF/PNA. Monitor O2. 6. Hypotension: Resolved. 7. Pancytopenia: Will monitor. Hold anticoagulation in light of thrombocytopenia. 8. Renal Insufficiency with unknown duration- will monitor for now. 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 10. DVT Prophylaxis: SCD/Teds. Barbara Clark MD Jan 30, 2017 10:30
--- NOTE | 2017-01-30 12:19 | MB ---
cc: LANCE HENLEY MD DATE OF CONSULTATION: 01/30/2017 REASON FOR CONSULTATION CHF and elevated troponin. HISTORY OF PRESENT ILLNESS The patient is a pleasant 81-year-old gentleman who is quite confused and unclear of his medical history or presentation, he is in fact unaware of his current surroundings, did not know he was in the hospital. He was able to say that he was somewhat short of breath on admission and feels better now but that is about as much history as I am able to obtain from him. Per the chart, the family noted him to become more and more short of breath throughout the day. Once admitted he was found to have evidence of both CHF and pneumonia and was initially treated with fluids although this has been discontinued. He is now getting IV antibiotics and also received Lasix. PAST MEDICAL HISTORY Unclear, the patient appears to have a history of open heart surgery (sternotomy scar present), CHF, pacer or defibrillator placement. CURRENT MEDICATIONS 1. Azithromycin. 2. Ceftriaxone. ALLERGIES NO KNOWN DRUG ALLERGIES. PHYSICAL EXAMINATION VITAL SIGNS: Afebrile, pulse 75, respiratory rate 16, BP 105/70, satting 95 on 2 liters. GENERAL: A pleasant, elderly -[place] gentleman in no distress. NECK: No JVD. LUNGS: Decreased breath sounds in the bases. CARDIOVASCULAR: Regular rate and rhythm. No murmurs appreciated. ABDOMEN: Abdomen is benign. EXTREMITIES: No edema. LABORATORY DATA White count 3.9, hematocrit 36.5, platelets 85. Sodium 144, potassium 4.6, chloride 109, bicarb 25.1, BUN 47, creatinine 2.31. Troponin has peaked at 2.2 down to 2.07. BNP is 3003. IMAGING Chest CT shows anasarca and bilateral pleural effusions, bilateral parenchymal infiltrates and consolidation. Additionally, there is a 4.7 ascending aneurysm at the aortic arch and a 5.3 x 5.2 descending aortic aneurysm. EKG shows an AV paced rhythm. IMPRESSION AND RECOMMENDATIONS 1. Shortness of breath. The patient's shortness of breath is most likely due to his pneumonias, we may have some superimposed congestive heart failure as well. This is a very challenging situation given some evidence of sepsis, given his low platelets and pneumonia as well as a low blood pressure. He is given both Lasix and IV saline and at this point I would hold both of these until his echocardiogram has been performed. He is getting IV antibiotics for his pneumonia. 2. Elevated troponin. The patient's elevated troponin in the absence of any chest pain is nonspecific particularly given his renal dysfunction. At this time, I would medically treat given his cognitive difficulties and likely poor prognosis given his multiple acute medical issues. 3. I will review the patient's office chart presuming he has one to get a better sense of his past medical history. Overall, I would suspect his prognosis is quite poor given the multiple medical issues detailed above. At this point, I would recommend only conservative medical therapy, and echocardiogram will help us prognostically as well. Further recommendations will be based on clinical course. Thank you again for the opportunity to participate in this patient's care. MD LESTER Welsh/ENRIKE /10:25 AM /11:46 AM
--- NOTE | 2017-01-30 14:53 | EC ---
Study Study Date:01/30/2017 STUDY CONCLUSIONS SUMMARY - Left ventricle: The cavity size was moderately dilated. Wall thickness was normal. Systolic function was severely reduced. The estimated ejection fraction was in the range of 10% to 15%. Diffuse hypokinesis. - Aortic valve: Valve area: 1.93cm^2(VTI). Valve area: 1.61cm^2 (Vmax). - Mitral valve: Mild to moderate regurgitation. - Left atrium: The atrium was mildly dilated. - Right ventricle: The cavity size was dilated. Wall thickness was normal. - Right atrium: The atrium was moderately dilated. - Tricuspid valve: Moderate regurgitation. - Pulmonic valve: Mild regurgitation. - Pulmonary arteries: Systolic pressure was moderately increased. PA peak pressure: 55mm Hg (S). - Pericardium, extracardiac: There was a large left pleural effusion. If LV function is below 40, please consider prescribing an ACEI or ARB or document rationale for non-use. PROCEDURE DATA STUDY STATUS: Elective. Procedure: Transthoracic echocardiography. Image quality was good. Scanning was performed from the parasternal, apical, and subcostal acoustic windows. Study completion: The patient tolerated the procedure well. Transthoracic echocardiography. M-mode, complete 2D, complete spectral Doppler, and color Doppler. Height: Height: 70in. Weight: Weight: 174.6lb. Body mass index: BMI: 25.1kg/m^2. Body surface area: BSA: 1.97m^2. Patient status: Inpatient. CARDIAC ANATOMY LEFT VENTRICLE: The cavity size was moderately dilated. Wall thickness was normal. Systolic function was severely reduced. The estimated ejection fraction was in the range of 10% to 15%. Diffuse hypokinesis. AORTIC VALVE: Trileaflet; moderately thickened, moderately calcified leaflets. Doppler: Transvalvular velocity was within the normal range. There was no stenosis. No regurgitation. Valve area: 1.93cm^2(VTI). Indexed valve area: 0.98cm^2/m^2 (VTI). Valve area: 1.61cm^2 (Vmax). Indexed valve area: 0.82cm^2/m^2 (Vmax). Mean gradient: 3mm Hg (S). AORTA: Aortic root: The aortic root was normal in size. MITRAL VALVE: Structurally normal valve. Doppler: Transvalvular velocity was within the normal range. There was no evidence for stenosis. Mild to moderate regurgitation. Peak gradient: 2mm Hg (D). LEFT ATRIUM: The atrium was mildly dilated. RIGHT VENTRICLE: The cavity size was dilated. Wall thickness was normal. Pacer wire or catheter noted in right ventricle. PULMONIC VALVE: Doppler: Transvalvular velocity was within the normal range. There was no evidence for stenosis. Mild regurgitation. TRICUSPID VALVE: Structurally normal valve. Doppler: Transvalvular velocity was within the normal range. Moderate regurgitation. PULMONARY ARTERY: The main pulmonary artery was normal-sized. Systolic pressure was moderately increased. RIGHT ATRIUM: The atrium was moderately dilated. Pacer wire or catheter noted in right atrium. PERICARDIUM: There was no pericardial effusion. SYSTEMIC VEINS: Inferior vena cava: The vessel was normal in size. Pleura: There was a large left pleural effusion. Patient weight: 174.6lb _Ejection fraction:_ 65-75% _Fractional shortening:_ 32% up to 5Kg 5-11.5Kg 11.6-22.9Kg 23-45Kg 45-57Kg Aortic Root 7-13 <17 13-22 17-27 17-27 LA diam 6-13 <23 24-38 33-47 37-40 RVID 10-17 7-15 7-15 7-18 8-17 LVIDd 12-22 <32 24-38 33-47 37-40 LVPW 2-4 3-6 5-7 6-8 7-8 IVS 2-4 3-6 5-7 6-8 7-8 BASIC MEASUREMENTS ADULT NORMAL Left ventricle LV internal dimension, ED, chordal *57.4 mm 43-52 level, PLAX LV internal dimension, ES, chordal *53.6 mm 23-38 level, PLAX Fractional shortening, chordal level, *7 % >29 PLAX LV posterior wall thickness, ED 8.94 mm IVS/LVPW ratio, ED 1.03 <1.3 Volume, ED, MOD, 1-plane 172 ml Volume, ES, MOD, 1-plane 155 ml Ejection fraction, MOD, 1-plane 10 % Stroke volume, MOD, 1-plane 17 ml Volume index, ED, MOD, 1-plane 87 ml/m^2 Volume index, ES, MOD, 1-plane 79 ml/m^2 Stroke index, MOD, 1-plane 8.6 ml/m^2 Volume, ED, MOD, 2-plane 205 ml Volume, ES, MOD, 2-plane 179 ml Ejection fraction, MOD, 2-plane 13 % Stroke volume, MOD, 2-plane 26 ml Volume index, ED, MOD, 2-plane 104 ml/m^2 Volume index, ES, MOD, 2-plane 91 ml/m^2 Stroke index, MOD, 2-plane 13.2 ml/m^2 Ventricular septum Septal thickness, ED 9.22 mm Aortic valve Leaflet separation 21 mm 15-26 Aorta Root diameter, ED 32 mm Left atrium Anterior-posterior dimension 41 mm Anterior-posterior dimension index 2.08 cm/m^2 <2.2 BASIC MEASUREMENTS ADULT NORMAL Aortic valve Leaflet separation 21 mm 15-26 DOPPLER MEASUREMENTS ADULT NORMAL Main pulmonary artery Pressure, S *55 mm Hg =30 Pressure, ED 15 mm Hg Aortic valve Peak velocity, S 117 cm/s Mean velocity, S 84.6 cm/s VTI, S 18.1 cm Mean gradient, S 3 mm Hg Valve area, VTI 1.93 cm^2 Valve area index, VTI 0.98 cm^2/m^2 Valve area, Vmax 1.61 cm^2 Valve area index, Vmax 0.82 cm^2/m^2 Mitral valve Peak E-wave velocity 71.6 cm/s Peak A-wave velocity 42.4 cm/s Deceleration time *92 ms 150-230 Peak gradient, D 2 mm Hg Peak E/A ratio 1.7 Tricuspid valve Regurgitant peak velocity 290 cm/s Peak RV-RA gradient, S 34 mm Hg Maximal regurgitant velocity 290 cm/s Systemic veins Estimated CVP 10 mm Hg Right ventricle RV pressure, S *56 mm Hg <30 Pulmonic valve Peak velocity, S 44.4 cm/s Regurgitant velocity, ED 115 cm/s LEGEND: Mean values are shown as u=mean value. Asterisk (*) mccarteny values outside specified normal range. Prepared and signed by Antonio Orozco [id number]
--- NOTE | 2017-01-30 15:41 | EKG ---
Date Performed: 01/29/2017 Time Performed: 16:07:21 PTAGE: 81 years EKG: ELECTRONIC ATRIAL PACEMAKER ELECTRONIC VENTRICULAR PACEMAKER ABNORMAL RHYTHM ECG INTERPRETA TION BASED ON A DEFAULT AGE OF 40 YEARS NO PREVIOUS TRACING DOCTOR: Jose Manuel Arrieta Interpretating Date/Time 01/30/2017 15:40:11
[2017-01-30] MEDS: ATORVASTATIN 40 MG TAB PO SCH (20:58)
[2017-01-30] MEDS: cefTRIAXone INJ 1,000 MG in SODIUM CHLORIDE 0.9% INJ 100 ML IV SCH (21:30)
[2017-01-30] MEDS: AZITHROMYCIN INJ 500 MG in SODIUM CHLOR 0.9% 250 ML INJ 250 ML IV SCH (21:31)
[2017-01-31] VITALS (25 sets, daily range): BP systolic 96–118; BP diastolic 60–71; PULSE 71–90; RESP 14–18; TEMP 97.1–98.4; O2SAT 94–98
[2017-01-31] MEDS: RESP: ALBUTEROL 2.5 MG/IPRATROPIUM 0.5 MG NEB (PRN) NEB ×2 (00:58→20:00)
[2017-01-31] MEDS ORDERED: FUROSEMIDE 20 MG/2 ML VIAL IV PUSH ONE (01:30)
[2017-01-31] MEDS: ASPIRIN 325 MG TAB PO SCH (08:10)
[2017-01-31] MEDS: SODIUM CHLOR 0.9% 1000 ML INJ 1,000 ML IV SCH (08:10)
[2017-01-31] MEDS: SODIUM CHLORIDE 0.9% FLUSH 10 ML FLUSH IV FLUSH SCH ×2 (08:10→20:53)
--- NOTE | 2017-01-31 08:24 | HHI.PR ---
Subjective Remarks resting comfortably with no distress. denies sob or chest pain. no fever. no new complaints. Objective Vitals Vital Signs Date Time Temp Pulse Resp B/P Pulse Ox O2 Delivery O2 Flow Rate FiO2 01/31/17 07:18 Nasal Cannula 2.00 01/31/17 06:35 75 01/31/17 05:12 75 01/31/17 04:35 72 01/31/17 03:00 74 01/31/17 03:00 97.2 75 110/68 96 01/31/17 02:00 74 01/31/17 01:00 88 01/31/17 00:39 97.1 90 104/68 95 01/31/17 00:00 74 01/30/17 23:00 75 01/30/17 22:00 74 01/30/17 21:00 74 01/30/17 20:00 74 01/30/17 19:00 75 01/30/17 19:00 97.4 73 104/71 94 01/30/17 19:00 Nasal Cannula 2.00 01/30/17 18:00 75 01/30/17 17:00 75 01/30/17 16:00 74 01/30/17 15:00 97.7 75 16 100/65 91 01/30/17 15:00 91 Nasal Cannula 2.00 01/30/17 14:00 75 01/30/17 13:00 75 01/30/17 12:00 75 01/30/17 11:00 97.9 73 16 106/69 94 01/30/17 11:00 94 Nasal Cannula 2.00 01/30/17 10:00 73 01/30/17 09:41 95 Nasal Cannula 2.00 01/30/17 09:00 75 I/O 01/30/17 01/30/17 01/30/17 01/31/17 01/31/17 01/31/17 07:00 15:00 23:00 07:00 15:00 23:00 Intake Total 640 ml 650 ml 590 ml Output Total 250 ml 225 ml 175 ml Balance 390 ml 425 ml 415 ml Intake Oral 240 ml 450 ml 240 ml IV Total 400 ml 200 ml 350 ml Output Urine Total 250 ml 225 ml 175 ml # Bowel Movements 0 1 Result Diagram: 01/30/17 0548 01/30/17 0548 Imaging Last Impressions Chest CT 01/30/17 0000 Signed Impressions: Service Date/Time: Monday, January 30, 2017 08:08 - CONCLUSION: 1. Anasarca and bilateral pleural effusions. 2. Bilateral parenchymal infiltrates and consolidations. 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 Valerie Germain MD Lower Extremity Ultrasound 01/29/17 1644 Signed Impressions: Service Date/Time: Sunday, January 29, 2017 17:12 - CONCLUSION: Normal examination. Benny Sharp MD Chest X-Ray 01/29/17 1644 Signed Impressions: Service Date/Time: Sunday, January 29, 2017 16:53 - CONCLUSION: Basilar consolidation, effusions and possible loculated effusion versus mass right lung base. Ranjith Ortiz MD Objective Remarks GENERAL: elderly male, in no apparent distress. CARDIOVASCULAR: Regular rate and regular rhythm without murmurs, gallops, or rubs. RESPIRATORY: Clear to auscultation. Breath sounds equal bilaterally. No wheezes , rales, or rhonchi. GASTROINTESTINAL: Abdomen soft, non-tender, nondistended. Normal, active bowel sounds MUSCULOSKELETAL: Extremities without clubbing, cyanosis, or edema. NEURO: Awake and alert. Medications and IVs Current Medications Sodium Chloride (NS Flush) 2 ml UNSCH PRN IVF FLUSH AFTER USING IV ACCESS; Start 01/29/17 at 16:45; Stop 01/29/17 at 20:16; Status DC Furosemide 40 mg 40 mg ONCE ONCE IVP Last administered on 01/29/17 17:50; Start 01/29/17 at 16:45; Stop 01/29/17 at 16:50; Status DC Ceftriaxone Sodium 1000 mg/ Sodium Chloride 100 ml @ 200 mls/hr ONCE ONCE IV Last administered on 01/29/17 18:28; Start 01/29/17 at 17:45; Stop 01/29/17 at 18:14; Status DC Azithromycin/ Sodium Chloride (Zithromax Inj/ NS 250 ml Inj) 250 ml @ 250 mls/ hr ONCE ONCE IV Last administered on 01/29/17 18:00; Start 01/29/17 at 17:45 ; Stop 01/29/17 at 18:44; Status DC Aspirin (Aspirin Chew) 162 mg DAILY CHEW ; Start 01/30/17 at 09:00; Stop at 09:00; Status DC Aspirin 162 mg 162 mg ONCE ONCE CHEW Last administered on 01/29/17 18:32; Start 01/29/17 at 18:30; Stop 01/29/17 at 18:31; Status DC Sodium Chloride 500 ml @ 500 mls/hr BOLUS ONCE IV ; Start 01/29/17 at 19:30; Stop 01/29/17 at 20:29; Status DC Ceftriaxone Sodium 1000 mg/ Sodium Chloride 100 ml @ 200 mls/hr Q24H IV Last administered on 01/30/17 21:30; Start 01/30/17 at 20:00 Azithromycin/ Sodium Chloride (Zithromax Inj/ NS 250 ml Inj) 250 ml @ 250 mls/ hr Q24H IV Last administered on 01/30/17 21:31; Start 01/30/17 at 21:00 Albuterol/ Ipratropium (Duoneb Neb) 1 ampule Q4HR NEB PRN NEB SOB/WHEEZING Last administered on 01/31/17 00:58; Start 01/29/17 at 20:15 Sodium Chloride (NS Flush) 2 ml UNSCH PRN IV FLUSH FLUSH AFTER USING IV ACCESS ; Start 01/29/17 at 20:15 Sodium Chloride (NS Flush) 2 ml BID IV FLUSH Last administered on 01/31/17 08: 10; Start 01/29/17 at 21:00 Ondansetron HCl (Zofran Inj) 4 mg Q6H PRN IVP NAUSEA OR VOMITING; Start at 20:15 Bisacodyl (Dulcolax Supp) 10 mg DAILY PRN RECTAL CONSTIPATION; Start 01/29/17 at 20:15 Acetaminophen (Tylenol) 650 mg Q6H PRN PO FEVER/PAIN SCALE 1 TO 2; Start at 20:15 Acetaminophen/ Hydrocodone Bitart ([place] 5-325 Mg) 1 tab Q4H PRN PO PAIN SCALE 3 TO 5; Start 01/29/17 at 20:15 Morphine Sulfate 4 mg 4 mg Q3H PRN IV Pain 6-10; Start 01/29/17 at 20:15 Sodium Chloride (NS 1000 ml Inj) 1,000 ml @ 80 mls/hr [id number] IV Last administered on 4/14/17at 20:40; Start 01/29/17 at 20:15 Atorvastatin Calcium (Lipitor) 40 mg HS PO Last administered on 01/30/17 20:58 ; Start 01/30/17 at 21:00 Aspirin (Aspirin) 325 mg DAILY PO Last administered on 01/31/17 08:10; Start 01/31/17 at 09:00 Furosemide (Lasix Inj) 20 mg ONCE ONCE IV PUSH Last administered on 01/31/17 01:39; Start 01/31/17 at 01:30; Stop 01/31/17 at 01:31; Status DC A/P Assessment and Plan A/P 1. elevated troponin; likely due to sepsis and renal insufficiency. cardiology consult appreciated; recommended conservative treatment; continue aspirin and statin. 2. CHF: Apparent h/o CHF, EF unknown. +LE edema, BNP 3224, CXR w/ basilar effusions. received one dose of lasix in ER- cardiology following. 3. acute respiratory failure duet to PNA/CHF: O2 sat 70's on arrival, currently stable on 2L/min NC. continue Rocephin/Zithro . neb treatment- blood cultures negative so far. 4. Hypotension: Resolved. 5. Pancytopenia: Will monitor. Hold anticoagulation in light of thrombocytopenia. 6. Renal Insufficiency with unknown duration- will monitor for now. 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 8. DVT Prophylaxis: SCD/Teds. 9. consult PT d/w the daughter. Barbara Clark MD Jan 31, 2017 08:24
[2017-01-31] MEDS ORDERED: FUROSEMIDE 40 MG TAB PO SCH (10:30)
--- NOTE | 2017-01-31 10:38 | PD.CARD.PN ---
Subjective Subjective Remarks Pt somnolent Objective Medications Administered Medications Medications (Trade) Dose Ordered Sig/Cezar Route PRN Reason Start Time Stop Time Status Last Admin Dose Admin Ceftriaxone Sodium 1000 mg/ Sodium Chloride 100 ml @ 200 mls/hr Q24H IV 01/30/17 20:00 01/30/17 21:30 Azithromycin/ Sodium Chloride (Zithromax Inj/ NS 250 ml Inj) 250 ml @ 250 mls/hr Q24H IV 01/30/17 21:00 01/30/17 21:31 Sodium Chloride 2 ml 2 ml BID IV FLUSH 01/29/17 21:00 01/31/17 08:10 Sodium Chloride (NS 1000 ml Inj) 1,000 ml @ 80 mls/hr [id number] IV 01/29/17 20:15 Hold 01/29/17 20:40 Atorvastatin Calcium (Lipitor) 40 mg HS PO 01/30/17 21:00 01/30/17 20:58 Aspirin (Aspirin) 325 mg DAILY PO 01/31/17 09:00 01/31/17 08:10 Vital Signs / I&O Vital Signs Date Time Temp Pulse Resp B/P Pulse Ox O2 Delivery O2 Flow Rate FiO2 01/31/17 08:00 97.4 72 14 110/68 98 01/31/17 08:00 77 01/31/17 07:18 Nasal Cannula 2.00 01/31/17 06:35 75 01/31/17 05:12 75 01/31/17 04:35 72 01/31/17 03:00 74 01/31/17 03:00 97.2 75 110/68 96 01/31/17 02:00 74 01/31/17 01:00 88 01/31/17 00:39 97.1 90 104/68 95 01/31/17 00:00 74 01/30/17 23:00 75 01/30/17 22:00 74 01/30/17 21:00 74 01/30/17 20:00 74 01/30/17 19:00 75 01/30/17 19:00 97.4 73 104/71 94 01/30/17 19:00 Nasal Cannula 2.00 01/30/17 18:00 75 01/30/17 17:00 75 01/30/17 16:00 74 01/30/17 15:00 97.7 75 16 100/65 91 01/30/17 15:00 91 Nasal Cannula 2.00 01/30/17 14:00 75 01/30/17 13:00 75 01/30/17 12:00 75 01/30/17 11:00 97.9 73 16 106/69 94 01/30/17 11:00 94 Nasal Cannula 2.00 I/O 01/30/17 01/30/17 01/30/17 01/31/17 01/31/17 01/31/17 07:00 15:00 23:00 07:00 15:00 23:00 Intake Total 640 ml 650 ml 590 ml Output Total 250 ml 225 ml 175 ml Balance 390 ml 425 ml 415 ml Intake Oral 240 ml 450 ml 240 ml IV Total 400 ml 200 ml 350 ml Output Urine Total 250 ml 225 ml 175 ml # Bowel Movements 0 1 Physical Exam GENERAL: somnolent CARDIOVASCULAR: Regular rate and rhythm without murmurs, gallops, or rubs. RESPIRATORY: Clear to auscultation. Breath sounds equal bilaterally. No wheezes , rales, or rhonchi. GASTROINTESTINAL: Abdomen soft, non-tender, nondistended. Normal active bowel sounds MUSCULOSKELETAL: Extremities without clubbing, cyanosis, or edema. NEURO: somnolent Imaging Last Impressions Chest CT 01/30/17 0000 Signed Impressions: Service Date/Time: Monday, January 30, 2017 08:08 - CONCLUSION: 1. Anasarca and bilateral pleural effusions. 2. Bilateral parenchymal infiltrates and consolidations. 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 Valerie Germain MD Lower Extremity Ultrasound 01/29/171643 Signed Impressions: Service Date/Time: Sunday, January 29, 2017 17:12 - CONCLUSION: Normal examination. Benny Sharp MD Chest X-Ray [id number]/29/[id number] Signed Impressions: Service Date/Time: Sunday, January 29, 2017 16:53 - CONCLUSION: Basilar consolidation, effusions and possible loculated effusion versus mass right lung base. Ranjith Ortiz MD Assessment and Plan Problem List: (1) Congestive heart failure Assessment and Plan: breathing comfortably, will restart oral lasix (2) Cardiomyopathy Assessment and Plan: Severe, EF 10-15%, restarted low does BB; holding david/arb due to poor renal fxn (3) PNA (pneumonia) Assessment and Plan: getting abx, being managed by medical team (4) NSTEMI (non-ST elevated myocardial infarction) Assessment and Plan: Elevated troponin in setting of pna/renal failure; LVEF very low, overall prognosis is poor, in absence of chest pain would consider him a candidate for medical therapy only. Assessment and Plan With his very low LVEF and multiple medical problems, would consider his prognosis to be very poor; would consider hospice palliative care as well. Problem Qualifiers (1) Congestive heart failure: Qualified Code: I50.9 - Congestive heart failure, unspecified congestive heart failure chronicity, unspecified congestive heart failure type Antonio Orozco MD Jan 31, 2017 10:38
[2017-01-31] MEDS ORDERED: PILL SPLITTER OTHER PRN (10:45)
[2017-01-31] MEDS: CARVEDILOL 3.125 MG TAB PO SCH ×2 (11:07→20:53)
[2017-01-31 14:04] LABS: BICARBONATE 25.9 MEQ/L (21.0-32.0); POTASSIUM 4.7 MEQ/L (3.5-5.1)
[2017-01-31] MEDS: AZITHROMYCIN INJ 500 MG in SODIUM CHLOR 0.9% 250 ML INJ 250 ML IV SCH (20:52)
[2017-01-31] MEDS: cefTRIAXone INJ 1,000 MG in SODIUM CHLORIDE 0.9% INJ 100 ML IV SCH (20:52)
[2017-01-31] MEDS: ATORVASTATIN 40 MG TAB PO SCH (20:53)
[2017-02-01] VITALS (23 sets, daily range): BP systolic 99–122; BP diastolic 58–81; PULSE 72–75; RESP 16; TEMP 97.6–98.6; O2SAT 91–94
--- NOTE | 2017-02-01 08:34 | PD.CARD.PN ---
Subjective Subjective Remarks Pt still confused, worse rales and scrotal edema Objective Medications Administered Medications Medications (Trade) Dose Ordered Sig/Cezar Route PRN Reason Start Time Stop Time Status Last Admin Dose Admin Ceftriaxone Sodium 1000 mg/ Sodium Chloride 100 ml @ 200 mls/hr Q24H IV 01/30/17 20:00 01/31/17 20:52 Azithromycin/ Sodium Chloride (Zithromax Inj/ NS 250 ml Inj) 250 ml @ 250 mls/hr Q24H IV 01/30/17 21:00 01/31/17 20:52 Sodium Chloride 2 ml 2 ml BID IV FLUSH 01/29/17 21:00 01/31/17 20:53 Sodium Chloride (NS 1000 ml Inj) 1,000 ml @ 80 mls/hr [id number] IV 01/29/17 20:15 Hold 01/29/17 20:40 Atorvastatin Calcium (Lipitor) 40 mg HS PO 01/30/17 21:00 01/31/17 20:53 Aspirin (Aspirin) 325 mg DAILY PO 01/31/17 09:00 01/31/17 08:10 Carvedilol (Coreg) 3.125 mg Q12HR PO 01/31/17 10:30 01/31/17 20:53 Furosemide (Lasix) 40 mg DAILY PO 01/31/17 10:30 01/31/17 11:07 Vital Signs / I&O Vital Signs Date Time Temp Pulse Resp B/P Pulse Ox O2 Delivery O2 Flow Rate FiO2 02/01/17 06:00 75 02/01/17 05:00 75 02/01/17 04:00 98.6 75 16 112/66 92 02/01/17 04:00 75 02/01/17 03:37 92 Nasal Cannula 3.00 02/01/17 03:00 75 02/01/17 02:00 75 02/01/17 01:00 75 02/01/17 00:00 75 02/01/17 00:00 98.4 75 16 101/58 92 01/31/17 23:00 75 01/31/17 22:00 75 01/31/17 21:00 75 01/31/17 20:00 75 01/31/17 20:00 98.4 77 16 118/66 94 01/31/17 20:00 Nasal Cannula 2.00 01/31/17 19:53 Nasal Cannula 3.50 01/31/17 19:00 77 01/31/17 18:00 74 01/31/17 17:00 74 01/31/17 16:00 75 01/31/17 16:00 97.8 71 16 96/60 97 01/31/17 15:00 74 01/31/17 14:00 74 01/31/17 13:00 74 01/31/17 12:00 75 01/31/17 12:00 97.2 79 18 112/71 98 01/31/17 11:00 74 01/31/17 10:00 74 01/31/17 09:00 74 I/O 01/31/17 01/31/17 01/31/17 02/01/17 02/01/17 02/01/17 07:00 15:00 23:00 07:00 15:00 23:00 Intake Total 590 ml 480 ml 590 ml Output Total 175 ml 350 ml 200 ml Balance 415 ml 130 ml 390 ml Intake Oral 240 ml 480 ml 240 ml IV Total 350 ml 350 ml Output Urine Total 175 ml 350 ml 200 ml # Bowel Movements 0 0 Physical Exam GENERAL: somnolent CARDIOVASCULAR: Regular rate and rhythm without murmurs, gallops, or rubs. RESPIRATORY: rales present GASTROINTESTINAL: Abdomen soft, non-tender, nondistended. Normal active bowel sounds MUSCULOSKELETAL: 1+ edema/scrotal edema NEURO: somnolent Laboratory Laboratory Tests Test 01/31/17 12:45 Sodium Level 142 MEQ/L Potassium Level 4.7 MEQ/L Chloride Level 107 MEQ/L Carbon Dioxide Level 25.9 MEQ/L Anion Gap 9 MEQ/L Blood Urea Nitrogen 59 MG/DL Creatinine 2.32 MG/DL Estimat Glomerular Filtration 27 ML/MIN Rate Random Glucose 103 MG/DL Calcium Level 8.3 MG/DL Imaging Last Impressions Chest CT 01/30/17 0000 Signed Impressions: Service Date/Time: Monday, January 30, 2017 08:08 - CONCLUSION: 1. Anasarca and bilateral pleural effusions. 2. Bilateral parenchymal infiltrates and consolidations. 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 Valerie Germain MD Lower Extremity Ultrasound 01/29/17 1644 Signed Impressions: Service Date/Time: Sunday, January 29, 2017 17:12 - CONCLUSION: Normal examination. Benny Sharp MD Chest X-Ray 01/29/17 7480 Signed Impressions: Service Date/Time: Sunday, January 29, 2017 16:53 - CONCLUSION: Basilar consolidation, effusions and possible loculated effusion versus mass right lung base. Ranjith Ortiz MD Assessment and Plan Problem List: (1) Congestive heart failure Assessment and Plan: worse today, started IV lasix (2) Cardiomyopathy Assessment and Plan: Severe, EF 10-15%, restarted low does BB; holding david/arb due to poor renal fxn (3) PNA (pneumonia) Assessment and Plan: getting abx, being managed by medical team (4) NSTEMI (non-ST elevated myocardial infarction) Assessment and Plan: Elevated troponin in setting of pna/renal failure; LVEF very low, overall prognosis is poor, in absence of chest pain would consider him a candidate for medical therapy only. Assessment and Plan With his very low LVEF and multiple medical problems, would consider his prognosis to be very poor; would consider hospice palliative care as well. Problem Qualifiers (1) Congestive heart failure: Qualified Code: I50.9 - Congestive heart failure, unspecified congestive heart failure chronicity, unspecified congestive heart failure type Antonio Orozco MD Feb 01, 2017 08:34
[2017-02-01] MEDS: ASPIRIN 325 MG TAB PO SCH (08:50)
[2017-02-01] MEDS: CARVEDILOL 3.125 MG TAB PO SCH (08:51)
[2017-02-01] MEDS: SODIUM CHLORIDE 0.9% FLUSH 10 ML FLUSH IV FLUSH SCH (08:51)
[2017-02-01] MEDS: FUROSEMIDE 40 MG/4 ML VIAL IV PUSH SCH ×2 (08:59→17:40)
[2017-02-01] MEDS ORDERED: LISINOPRIL 5 MG TAB PO SCH (09:00)
--- NOTE | 2017-02-01 10:03 | HHI.PR ---
Subjective Remarks in no acute distress. however lungs sound more congested today. not that much of urine output. afebrile. Objective Vitals Vital Signs Date Time Temp Pulse Resp B/P Pulse Ox O2 Delivery O2 Flow Rate FiO2 02/01/17 07:00 Nasal Cannula 4.00 02/01/17 07:00 98.3 75 16 122/81 92 02/01/17 06:00 75 02/01/17 05:00 75 02/01/17 04:00 98.6 75 16 112/66 92 02/01/17 04:00 75 02/01/17 03:37 92 Nasal Cannula 3.00 02/01/17 03:00 75 02/01/17 02:00 75 02/01/17 01:00 75 02/01/17 00:00 75 02/01/17 00:00 98.4 75 16 101/58 92 01/31/17 23:00 75 01/31/17 22:00 75 01/31/17 21:00 75 01/31/17 20:00 75 01/31/17 20:00 98.4 77 16 118/66 94 01/31/17 20:00 Nasal Cannula 2.00 01/31/17 19:53 Nasal Cannula 3.50 01/31/17 19:00 77 01/31/17 18:00 74 01/31/17 17:00 74 01/31/17 16:00 75 01/31/17 16:00 97.8 71 16 96/60 97 01/31/17 15:00 74 01/31/17 14:00 74 01/31/17 13:00 74 01/31/17 12:00 75 01/31/17 12:00 97.2 79 18 112/71 98 01/31/17 11:00 74 01/31/17 10:00 74 I/O 01/31/17 01/31/17 01/31/17 02/01/17 02/01/17 02/01/17 07:00 15:00 23:00 07:00 15:00 23:00 Intake Total 590 ml 480 ml 590 ml Output Total 175 ml 350 ml 200 ml Balance 415 ml 130 ml 390 ml Intake Oral 240 ml 480 ml 240 ml IV Total 350 ml 350 ml Output Urine Total 175 ml 350 ml 200 ml # Bowel Movements 0 0 Result Diagram: 01/30/17 0548 01/31/17 1245 Imaging Last Impressions Chest CT 01/30/17 0000 Signed Impressions: Service Date/Time: Monday, January 30, 2017 08:08 - CONCLUSION: 1. Anasarca and bilateral pleural effusions. 2. Bilateral parenchymal infiltrates and consolidations. 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 Valerie Germain MD Lower Extremity Ultrasound 01/29/17 1644 Signed Impressions: Service Date/Time: Sunday, January 29, 2017 17:12 - CONCLUSION: Normal examination. Benny Sharp MD Chest X-Ray 01/29/17 1644 Signed Impressions: Service Date/Time: Sunday, January 29, 2017 16:53 - CONCLUSION: Basilar consolidation, effusions and possible loculated effusion versus mass right lung base. Ranjith Ortiz MD Objective Remarks GENERAL: elderly male, in no apparent distress. CARDIOVASCULAR: Regular rate and regular rhythm without murmurs, gallops, or rubs. RESPIRATORY: Clear to auscultation. Breath sounds equal bilaterally. No wheezes , rales, or rhonchi. GASTROINTESTINAL: Abdomen soft, non-tender, nondistended. Normal, active bowel sounds MUSCULOSKELETAL: Extremities without clubbing, cyanosis, or edema. NEURO: Awake and alert. Medications and IVs Current Medications Sodium Chloride (NS Flush) 2 ml UNSCH PRN IVF FLUSH AFTER USING IV ACCESS; Start 01/29/17 at 16:45; Stop 01/29/17 at 20:16; Status DC Furosemide 40 mg 40 mg ONCE ONCE IVP Last administered on 01/29/17 17:50; Start 01/29/17 at 16:45; Stop 01/29/17 at 16:50; Status DC Ceftriaxone Sodium 1000 mg/ Sodium Chloride 100 ml @ 200 mls/hr ONCE ONCE IV Last administered on 01/29/17 18:28; Start 01/29/17 at 17:45; Stop 01/29/17 at 18:14; Status DC Azithromycin/ Sodium Chloride (Zithromax Inj/ NS 250 ml Inj) 250 ml @ 250 mls/ hr ONCE ONCE IV Last administered on 01/29/17 18:00; Start 01/29/17 at 17:45 ; Stop 01/29/17 at 18:44; Status DC Aspirin (Aspirin Chew) 162 mg DAILY CHEW ; Start 01/30/17 at 09:00; Stop at 09:00; Status DC Aspirin 162 mg 162 mg ONCE ONCE CHEW Last administered on 01/29/17 18:32; Start 01/29/17 at 18:30; Stop 01/29/17 at 18:31; Status DC Sodium Chloride 500 ml @ 500 mls/hr BOLUS ONCE IV ; Start 01/29/17 at 19:30; Stop 01/29/17 at 20:29; Status DC Ceftriaxone Sodium 1000 mg/ Sodium Chloride 100 ml @ 200 mls/hr Q24H IV Last administered on 01/31/17 20:52; Start 01/30/17 at 20:00 Azithromycin/ Sodium Chloride (Zithromax Inj/ NS 250 ml Inj) 250 ml @ 250 mls/ hr Q24H IV Last administered on 01/31/17 20:52; Start 01/30/17 at 21:00 Albuterol/ Ipratropium (Duoneb Neb) 1 ampule Q4HR NEB PRN NEB SOB/WHEEZING Last administered on 01/31/17 20:00; Start 01/29/17 at 20:15 Sodium Chloride (NS Flush) 2 ml UNSCH PRN IV FLUSH FLUSH AFTER USING IV ACCESS ; Start 01/29/17 at 20:15 Sodium Chloride (NS Flush) 2 ml BID IV FLUSH Last administered on 02/01/17 08: 51; Start 01/29/17 at 21:00 Ondansetron HCl (Zofran Inj) 4 mg Q6H PRN IVP NAUSEA OR VOMITING; Start at 20:15 Bisacodyl (Dulcolax Supp) 10 mg DAILY PRN RECTAL CONSTIPATION; Start 01/29/17 at 20:15 Acetaminophen (Tylenol) 650 mg Q6H PRN PO FEVER/PAIN SCALE 1 TO 2; Start at 20:15 Acetaminophen/ Hydrocodone Bitart (Limon 5-325 Mg) 1 tab Q4H PRN PO PAIN SCALE 3 TO 5; Start 01/29/17 at 20:15 Morphine Sulfate 4 mg 4 mg Q3H PRN IV Pain 6-10; Start 01/29/17 at 20:15 Sodium Chloride (NS 1000 ml Inj) 1,000 ml @ 80 mls/hr [id number] IV Last administered on 01/29/17 20:40; Start 01/29/17 at 20:15; Status Hold Atorvastatin Calcium (Lipitor) 40 mg HS PO Last administered on 01/31/17 20:53 ; Start 01/30/17 at 21:00 Aspirin (Aspirin) 325 mg DAILY PO Last administered on 02/01/17 08:50; Start 01/31/17 at 09:00 Furosemide (Lasix Inj) 20 mg ONCE ONCE IV PUSH Last administered on 01/31/17 01:39; Start 01/31/17 at 01:30; Stop 01/31/17 at 01:31; Status DC Carvedilol (Coreg) 3.125 mg Q12HR PO Last administered on 02/01/17 08:51; Start 01/31/17 at 10:30 Lisinopril (Prinivil) 2.5 mg DAILY PO ; Start 02/01/17 at 09:00; Stop 02/01/17 at 09:00; Status DC Furosemide (Lasix) 40 mg DAILY PO Last administered on 01/31/17 11:07; Start 01/31/17 at 10:30; Stop 02/01/17 at 08:27; Status DC Miscellaneous (Pill Splitter) 1 ea UNSCH PRN OTHER SEE LABEL COMMENTS; Start at 10:45 Furosemide (Lasix Inj) 40 mg BID@09,18 IV PUSH Last administered on 02/01/17 08:59; Start 02/01/17 at 09:00 A/P Assessment and Plan A/P 1. elevated troponin; likely due to sepsis and renal insufficiency. cardiology consult appreciated; recommended conservative treatment; continue aspirin, coreg and statin. 2. acute on chronic systolic CHF: clinically worse today; EF 10-15%- started back on Lasix- continue coreg- no RAYMOND-I due to renal insufficiency. 3. acute respiratory failure duet to PNA/CHF: O2 sat 70's on arrival, currently stable on 2L/min NC. continue Rocephin/Zithro . neb treatment- blood cultures negative so far. 4. Hypotension: Resolved. 5. Pancytopenia: Will monitor. Hold anticoagulation in light of thrombocytopenia. 6. Renal Insufficiency with unknown duration- will monitor for now. 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 8. DVT Prophylaxis: SCD/Teds. 9. consult PT poor prognosis considering his low EF and multiple comorbidities. will consult palliative care. d/w the RN. Barbara Clark MD Feb 01, 2017 10:03
--- NOTE | 2017-02-01 14:36 | PD.CONS ---
Consult Service Palliative Care Consult Requested By Dr. Clark . Primary Care Physician Non-Staff . Reason for Consultation a. To assist with evaluation and management of symptoms including: Dyspnea , encephalopathy b. To assist medical decision maker(s) with: better understanding of current medical conditions; weighing benefits/burdens of medical treatment options; making medical treatment decisions. . HPI History of Present Illness This 81-year-old A-A male, with a past history of heart disease and CHF, presented to this hospital for the first time on 01/29/17 because of dyspnea and altered mental status. It was unclear how many days the patient had been dyspneic, but he was confused, disoriented. He did not report any chest pain or syncope. In the emergency department, findings included: * Confusion, moderate dyspnea * Initial oxygen saturation 70% on room air * Pulse 73, respirations 22, blood pressure 104/69, oxygen saturation 95% on 4 L * Sodium 141, creatinine 2.55, GFR 24, albumin 2.8 * White count 3.7, hemoglobin 12.5, platelets 92,000 * Bilirubin 1.9 * BNP 3224 * Troponin 1.76 * Chest x-ray with bibasilar consolidation * Ultrasound of the extremities negative for DVT Some diuresis was undertaken, the patient was initially placed on antibiotics because of the concern for possible pneumonia, and he was admitted to the hospital. A CT of the chest revealed anasarca and bilateral infiltrates. The day after admission, the creatinine was 2.31, troponin was 2.2, and his blood pressure dropped below 100 systolic. An ECHOCARDIOGRAM was completed, revealing an Ejection Fraction of 10-15%. Blood cultures were negative, and a repeat GFR on 01/31/17 was 27. The patient remained somewhat dyspneic even at rest, but he continued to deny chest pain. He remained somewhat confused. Palliative Care was consulted to assist with symptom management, and to enter into discussions with the patient and family regarding the current illnesses, the prognosis, and the benefits and burdens of the various treatment options now. . Function/Cognitive Trajectory The patient has been declining over the past year or 2, and moved in with his daughter in August 2016. He uses a cane to ambulate at home here. His daughter bathes him, prepares food for him, makes sure he takes his medicines. . Review of Systems ROS Limitations: Altered Mental Status Constitutional: COMPLAINS OF: Fatigue, Weight loss Endocrine: DENIES: Polyuria Eyes: DENIES: Eye inflammation Ears, nose, mouth, throat: DENIES: Epistaxis Respiratory: COMPLAINS OF: Cough, Shortness of breath Cardiovascular: COMPLAINS OF: Dyspnea on Exertion, Orthopnea, DENIES: Chest pain, Syncope Gastrointestinal: DENIES: Bloody stools, Diarrhea, Vomiting Genitourinary: DENIES: Hematuria Musculoskeletal: DENIES: Joint pain, Back pain Integumentary: DENIES: Rash Hematologic/Lymphatics: DENIES: Bruising, Lymphadenopathy Immunologic/Allergic: DENIES: Urticaria Neurologic: DENIES: Localized weakness, Paresthesias, Seizures Psychiatric: COMPLAINS OF: Confusion, Depression, DENIES: Agitation Past Family Social History Coded Allergies: No Known Allergies (Unverified , 01/29/17) Past Medical History * End-stage heart disease * Dilated cardiomyopathy, EF 10-15% * Chronic kidney disease, Stage IV * Bilateral infiltrates and pleural effusion on x-ray/CT scan * Elevated troponin, felt to be nonspecific * History of early dementia the past year or 2 * History of hyperlipidemia * History of hypertension * Remote history of prostate cancer . Past Surgical History * Pacemaker * CABG several years ago * AAA repair several years ago * Incisional hernia repair * Prostate surgery . Reported Medications Unknown medicines at home, patient and daughter are unaware of what medicines he takes . Current Medications Medications (Trade) Dose Ordered Sig/Cezar Route Start Time Stop Time Status Last Admin Ceftriaxone Sodium 1000 mg/ Sodium Chloride 100 ml @ 200 mls/hr Q24H IV 01/30/17 20:00 01/31/17 20:52 (Zithromax Inj/ NS 250 ml Inj) 250 ml @ 250 mls/hr Q24H IV 01/30/17 21:00 01/31/17 20:52 (NS Flush) 2 ml UNSCH PRN IV FLUSH 01/29/17 20:15 (NS Flush) 2 ml BID IV FLUSH 01/29/17 21:00 02/01/17 08:51 (Zofran Inj) 4 mg Q6H PRN IVP 01/29/17 20:15 (Dulcolax Supp) 10 mg DAILY PRN RECTAL 01/29/17 20:15 (Tylenol) 650 mg Q6H PRN PO 01/29/17 20:15 ([place] 5-325 Mg) 1 tab Q4H PRN PO 01/29/17 20:15 Morphine Sulfate 4 mg 4 mg Q3H PRN IV 01/29/17 20:15 (NS 1000 ml Inj) 1,000 ml @ 80 mls/hr [id number] IV 01/29/17 20:15 Hold 01/29/17 20:40 (Lipitor) 40 mg HS PO 01/30/17 21:00 01/31/17 20:53 (Aspirin) 325 mg DAILY PO 01/31/17 09:00 02/01/17 08:50 (Coreg) 3.125 mg Q12HR PO 01/31/17 10:30 02/01/17 08:51 (Pill Splitter) 1 ea UNSCH PRN OTHER 01/31/17 10:45 (Lasix Inj) 40 mg BID@09,18 IV PUSH 02/01/17 09:00 02/01/17 08:59 Family History The patient's parents are both ; he knows they both had diabetes but is unaware of their ages at the time of or any other medical problems. He says other family members have diabetes. His youngest daughter Natalya has ESRD and is on dialysis. . Substance Use Tobacco: Smoked for many years but quit a few years ago. Alcohol: "I used to drink but no more" Prescription med abuse: None Illicits: None . Psychosocial History The patient was born in [place], [place], and lived there until being moved up here to live with his daughter in August 2016. He tells me he has "7 or 8 children" and he thinks 5 of them are boys. His daughter reports he has 6 children from her mother, and one other "from another woman." He lives with his daughter Natalya. He was 3 times; his first of heart failure, he the second after a short marriage, and his third after just 4 or 5 years of marriage. 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 . Spiritual/Cultural Factors The patient reports he was raised Catholic, and that he remains affiliated with a Catholic pent[employer]. Spirituality has been important for him. . Living Will: Never completed Health Care Surrogate: Copy in medical record Durable Power of Document Restorer: Never completed Date completed: 02/01/17 . Health Care Surrogate(s): Daughter Natalya Goodwin 's primary, and son Veto is secondary. . Today's verbally stated goals: Discussions with the patient are somewhat difficult, because he is intermittently confused. When discussing resuscitation options, he thought about it for a couple minutes and then said "I guess I will let her [daughter Natalya] decide." . Family/friends goals: The patient's daughter Natalya wants him to be peaceful and comfortable in his final days and weeks, requesting DNR status and a hospice consultation. The patient says "I have lived a good life." The patient's daughter/HCS Natalya requests DNR status and a hospice consultation. She would like to take him home to her place, feeling that he will be most comfortable in his final days and weeks there. . Ethical and Legal Issues There are no ethical issues that would impact his care or decision-making at this time. The patient has been intermittently confused since the time of arrival here at the hospital. It is not clear to me that the patient is able to engage in and completely understand complex healthcare discussions and decision-making, and I believe decisions should at least be shared with his appointed healthcare surrogate. He has specifically deferred the resuscitation choices to his daughter. . Physical Exam Vital Signs Date Time Temp Pulse Resp B/P Pulse Ox O2 Delivery O2 Flow Rate FiO2 02/01/17 14:04 74 02/01/17 13:04 75 02/01/17 12:29 94 Nasal Cannula 3.50 02/01/17 12:02 72 02/01/17 11:06 75 02/01/17 11:00 97.6 75 16 112/72 94 02/01/17 10:00 75 02/01/17 09:00 74 02/01/17 08:00 74 02/01/17 07:00 74 02/01/17 07:00 Nasal Cannula 4.00 02/01/17 07:00 98.3 75 16 122/81 92 02/01/17 06:00 75 02/01/17 05:00 75 02/01/17 04:00 98.6 75 16 112/66 92 02/01/17 04:00 75 02/01/17 03:37 92 Nasal Cannula 3.00 02/01/17 03:00 75 02/01/17 02:00 75 02/01/17 01:00 75 02/01/17 00:00 75 02/01/17 00:00 98.4 75 16 101/58 92 01/31/17 23:00 75 01/31/17 22:00 75 01/31/17 21:00 75 01/31/17 20:00 75 01/31/17 20:00 98.4 77 16 118/66 94 01/31/17 20:00 Nasal Cannula 2.00 01/31/17 19:53 Nasal Cannula 3.50 01/31/17 19:00 77 01/31/17 18:00 74 01/31/17 17:00 74 01/31/17 16:00 75 01/31/17 16:00 97.8 71 16 96/60 97 01/31/17 15:00 74 01/31/17 02/01/17 19:00 07:00 Intake Total 480 ml 590 ml Output Total 350 ml 200 ml Balance 130 ml 390 ml Intake Oral 480 ml 240 ml IV Total 350 ml Output Urine Total 350 ml 200 ml # Bowel Movements 0 0 Exam CONSTITUTIONAL/GENERAL: This is an elderly, weak patient, in mild respiratory distress. TUBES/LINES/DRAINS: Nasal cannula oxygen, Caceres catheter, peripheral IV SKIN: No jaundice, rashes, or lesions. No wounds seen anteriorly. Skin temperature appropriate. Not diaphoretic. HEAD: Atraumatic. Normocephalic. EYES: Pupils equal and round and reactive. Extraocular motions intact. No scleral icterus. No injection or drainage. Fundi not examined. ENT: Hearing grossly normal. Nose without bleeding or purulent drainage. Throat without visible erythema, exudates, masses, or lesions. NECK: Trachea midline. Supple, nontender. No palpable thyroid enlargement or nodularity. CARDIOVASCULAR: Regular rate and rhythm with grade 2 systolic murmur. He has MARKED JVD while sitting at 45. Peripheral pulses quite diminished. RESPIRATORY/CHEST: Symmetric, mildly labored respirations. He has a couple expiratory wheezes bilateral, and by basilar rales. GASTROINTESTINAL: Abdomen soft, non-tender, nondistended. No hepato-splenomegaly , or palpable masses. No guarding. Bowel sounds present. GENITOURINARY: Without palpable bladder distension. Caceres catheter in place. MUSCULOSKELETAL: Extremities without clubbing, cyanosis, or edema. No joint tenderness or effusion noted. No calf tenderness. No mottling or clubbing. LYMPHATICS: No palpable cervical or supraclavicular adenopathy. NEUROLOGICAL: Awake and alert. Motor and sensory grossly within normal limits. Follows commands easily. Not oriented to day or year, but is oriented to place and person. Moves all extremities. PSYCHIATRIC: No obvious anxiety/depression. no apparent hallucinations or other psychotic thought process. . Diagnostic Tests Laboratory Laboratory Tests Test 01/29/17 01/29/17 01/29/17 01/29/17 17:10 17:40 20:30 23:39 White Blood Count 3.7 TH/MM3 (4.0-11.0) Red Blood Count 3.81 MIL/MM3 (4.50-5.90) Hemoglobin 12.5 GM/DL (13.0-17.0) Hematocrit 38.4 % (39.0-51.0) Mean Corpuscular Volume 100.7 FL (80.0-100.0) Mean Corpuscular Hemoglobin 32.7 PG (27.0-34.0) Mean Corpuscular Hemoglobin 32.5 % Concent (32.0-36.0) Red Cell Distribution Width 19.8 % (11.6-17.2) Platelet Count 92 TH/MM3 (150-450) Mean Platelet Volume 8.7 FL (7.0-11.0) Neutrophils (%) (Auto) 81.6 % (16.0-70.0) Lymphocytes (%) (Auto) 6.8 % (9.0-44.0) Monocytes (%) (Auto) 9.0 % (0.0-8.0) Eosinophils (%) (Auto) 0.4 % (0.0-4.0) Basophils (%) (Auto) 2.2 % (0.0-2.0) Neutrophils # (Auto) 3.0 TH/MM3 (1.8-7.7) Lymphocytes # (Auto) 0.2 TH/MM3 (1.0-4.8) Monocytes # (Auto) 0.3 TH/MM3 (0-0.9) Eosinophils # (Auto) 0.0 TH/MM3 (0-0.4) Basophils # (Auto) 0.1 TH/MM3 (0-0.2) CBC Comment AUTO DIFF Differential Comment AUTO DIFF CONFIRMED Platelet Estimate LOW (NORMAL) Platelet Morphology Comment NORMAL (NORMAL) Ovalocytes 1+ (NORMAL) Crenated Cell 1+ (NORMAL) Keratocytes 1+ (NORMAL) Prothrombin Time 16.4 SEC (9.8-11.6) Prothromb Time International 1.5 RATIO Ratio Activated Partial 28.5 SEC Thromboplast Time (24.3-30.1) Sodium Level 141 MEQ/L (136-145) Potassium Level 4.7 MEQ/L (3.5-5.1) Chloride Level 106 MEQ/L (98-107) Carbon Dioxide Level 26.0 MEQ/L (21.0-32.0) Anion Gap 9 MEQ/L (5-15) Blood Urea Nitrogen 43 MG/DL (7-18) Creatinine 2.55 MG/DL (0.60-1.30) Estimat Glomerular Filtration 24 ML/MIN (>89) Rate Random Glucose 78 MG/DL (74-106) Calcium Level 8.7 MG/DL (8.5-10.1) Magnesium Level 2.0 MG/DL (1.5-2.5) Total Bilirubin 1.9 MG/DL (0.2-1.0) Aspartate Amino Transf 26 U/L (15-37) (AST/SGOT) Alanine Aminotransferase 21 U/L (12-78) (ALT/SGPT) Alkaline Phosphatase 54 U/L (45-117) Total Creatine Kinase 129 U/L (39-308) Creatine Kinase MB 1.5 NG/ML (0.5-3.6) Troponin I 1.76 NG/ML 2.20 NG/ML (0.02-0.05) (0.02-0.05) B-Type Natriuretic Peptide 3224 PG/ML (0-100) Total Protein 6.5 GM/DL (6.4-8.2) Albumin 2.8 GM/DL (3.4-5.0) Lactic Acid Level 2.8 mmol/L (0.4-2.0) Urine Color YELLOW (YELLW/STRAW) Urine Turbidity CLEAR (CLEAR) Urine pH 5.0 (5.0-8.5) Urine Specific [place] 1.013 (1.002-1.035) Urine Protein TRACE mg/dL (NEG-TRACE) Urine Glucose (UA) NEG mg/dL (NEG) Urine Ketones NEG mg/dL (NEG) Urine Occult Blood NEG (NEG) Urine Nitrite NEG (NEG) Urine Bilirubin NEG (NEG) Urine Urobilinogen 2.0 MG/DL (LESS THAN 2.0) Urine Leukocyte Esterase NEG (NEG) Urine WBC 1 /hpf (0-5) Urine Squamous Epithelial <1 /hpf (0-5) Cells Urine Amorphous Sediment RARE Urine Hyaline Casts 22 /lpf (RARE) Microscopic Urinalysis Comment CULT NOT INDICATED Test 01/30/17 01/31/17 05:48 12:45 White Blood Count 3.9 TH/MM3 (4.0-11.0) Red Blood Count 3.61 MIL/MM3 (4.50-5.90) Hemoglobin 12.0 GM/DL (13.0-17.0) Hematocrit 36.5 % (39.0-51.0) Mean Corpuscular Volume 101.1 FL (80.0-100.0) Mean Corpuscular Hemoglobin 33.3 PG (27.0-34.0) Mean Corpuscular Hemoglobin 32.9 % Concent (32.0-36.0) Red Cell Distribution Width 19.7 % (11.6-17.2) Platelet Count 85 TH/MM3 (150-450) Mean Platelet Volume 9.0 FL (7.0-11.0) Neutrophils (%) (Auto) 81.6 % (16.0-70.0) Lymphocytes (%) (Auto) 6.6 % (9.0-44.0) Monocytes (%) (Auto) 11.0 % (0.0-8.0) Eosinophils (%) (Auto) 0.2 % (0.0-4.0) Basophils (%) (Auto) 0.6 % (0.0-2.0) Neutrophils # (Auto) 3.2 TH/MM3 (1.8-7.7) Lymphocytes # (Auto) 0.3 TH/MM3 (1.0-4.8) Monocytes # (Auto) 0.4 TH/MM3 (0-0.9) Eosinophils # (Auto) 0.0 TH/MM3 (0-0.4) Basophils # (Auto) 0.0 TH/MM3 (0-0.2) CBC Comment AUTO DIFF Differential Total Cells 100 Counted Neutrophils % (Manual) 84 % (16-70) Band Neutrophils % 3 % (0-6) Lymphocytes % 3 % (9-44) Monocytes % 9 % (0-8) Basophils % 1 % (0-2) Neutrophils # (Manual) 3.4 TH/MM3 (1.8-7.7) Differential Comment FINAL DIFF MANUAL Platelet Estimate LOW (NORMAL) Platelet Morphology Comment NORMAL (NORMAL) Ovalocytes 1+ (NORMAL) Acanthocytes OCC (NORMAL) Sodium Level 144 MEQ/L 142 MEQ/L (136-145) (136-145) Potassium Level 4.6 MEQ/L 4.7 MEQ/L (3.5-5.1) (3.5-5.1) Chloride Level 109 MEQ/L 107 MEQ/L (98-107) (98-107) Carbon Dioxide Level 25.1 MEQ/L 25.9 MEQ/L (21.0-32.0) (21.0-32.0) Anion Gap 10 MEQ/L (5-15) 9 MEQ/L (5-15) Blood Urea Nitrogen 47 MG/DL (7-18) 59 MG/DL (7-18) Creatinine 2.31 MG/DL 2.32 MG/DL (0.60-1.30) (0.60-1.30) Estimat Glomerular Filtration 27 ML/MIN (>89) 27 ML/MIN (>89) Rate Random Glucose 71 MG/DL 103 MG/DL (74-106) (74-106) Lactic Acid Level 2.1 mmol/L (0.4-2.0) Calcium Level 8.5 MG/DL 8.3 MG/DL (8.5-10.1) (8.5-10.1) Total Bilirubin 1.2 MG/DL (0.2-1.0) Aspartate Amino Transf 27 U/L (15-37) (AST/SGOT) Alanine Aminotransferase 21 U/L (12-78) (ALT/SGPT) Alkaline Phosphatase 50 U/L (45-117) Troponin I 2.07 NG/ML (0.02-0.05) B-Type Natriuretic Peptide 3003 PG/ML (0-100) Total Protein 5.8 GM/DL (6.4-8.2) Albumin 2.5 GM/DL (3.4-5.0) Result Diagram: 01/30/17 0548 01/31/17 1245 Microbiology Microbiology Date/Time Procedure Status Source Growth 01/29/17 17:05 Aerobic Blood Culture - Preliminary Resulted Blood Peripheral NO GROWTH IN 3 DAYS 01/29/17 17:05 Anaerobic Blood Culture - Preliminary Resulted Blood Peripheral NO GROWTH IN 3 DAYS 01/29/17 17:10 Aerobic Blood Culture - Preliminary Resulted Blood Peripheral NO GROWTH IN 3 DAYS 01/29/17 17:10 Anaerobic Blood Culture - Preliminary Resulted Blood Peripheral NO GROWTH IN 3 DAYS Imaging Last Impressions Chest CT 01/30/17 0000 Signed Impressions: Service Date/Time: Monday, January 30, 2017 08:08 - CONCLUSION: 1. Anasarca and bilateral pleural effusions. 2. Bilateral parenchymal infiltrates and consolidations. 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 Valerie Germain MD Lower Extremity Ultrasound 01/29/171643 Signed Impressions: Service Date/Time: Sunday, January 29, 2017 17:12 - CONCLUSION: Normal examination. Benny Sharp MD Chest X-Ray 01/29/171643 Signed Impressions: Service Date/Time: Sunday, January 29, 2017 16:53 - CONCLUSION: Basilar consolidation, effusions and possible loculated effusion versus mass right lung base. Ranjith Ortiz MD Procedures ECHOCARDIOGRAM 01/30/17 . Patient/Family Conference Present at Family Conference: Daughter Natalya. . Family Conference Time (mins): 41 Family Conference Location: Consult Room Issues Discussed: * Palliative care role, purpose, approach * Hospice care role, purpose, approach * Additional medical, psychosocial, and spiritual history * Patients general health, functional status, and cognitive changes in the months leading up to the current hospitalization * Patient/family understanding of the current medical problems * Patient/family understanding of prognosis * Patients goals of care as best understood from advance directives and/or conversations and/or values * Current medical treatment options and benefits/burdens of those options * Likely scenarios comparing ongoing aggressive care with a transition to comfort measures only * Questions answered to the best of my ability * Palliative care contact information provided Daughter requests DNR and hospice consult . Assessment and Plan Disease Oriented Problem List: (1) end-stage heart disease (2) dilated cardiomyopathy, EF 10-15% (3) chronic kidney disease, stage IV (4) bilateral infiltrates and pleural effusion on x-ray/CT scan (5) elevated troponin, felt to be nonspecific (6) history of hypertension (7) history of hyperlipidemia (8) history of early dementia of the past year or 2 (9) remote history of prostate cancer Symptom Scale: (1) dyspnea 0-10 Scale: 3 (CHF) (2) encephalopathy (3) history of early dementia of the past year or 2 Pertinent Non-Medical Issues Psychosocial: 3 times ( twice, once), retired from the [employer], has 7 children and lives with daughter Natalya. Spiritual: Catholic, spirituality has been important for him Legal: The patient has been intermittently confused since the time of arrival here at the hospital. It is not clear to me that the patient is able to engage in and completely understand complex healthcare discussions and decision-making , and I believe decisions should at least be shared with his appointed healthcare surrogate. He has specifically deferred the resuscitation choices to his daughter. Ethical issues impacting care: None.. . Important Contacts Daughter: Natalya Goodwin [phone] . Prognosis This patient is terminal. He has ongoing congestive heart failure with a markedly diminished cardiac function and very poor renal function. He is appropriate for hospice services when the goals are consistent with comfort/ hospice. . Code Status: No Code Plan * DO NOT RESUSCITATE * DECISION-MAKING: The patient has been intermittently confused since the time of arrival here at the hospital. It is not clear to me that the patient is able to engage in and completely understand complex healthcare discussions and decision-making, and I believe decisions should at least be shared with his appointed healthcare surrogate. He has specifically deferred the resuscitation choices to his daughter. * GOALS: The patient says "I have lived a good life." The patient's daughter/ ANA Hoang requests DNR status and a hospice consultation. She would like to take him home to her place, feeling that he will be most comfortable in his final days and weeks there. * Hospice consult placed. * SYMPTOMS: The patient has ongoing signs of CHF and some dyspnea even at rest. He does not seem to have significant pain or anxiety at this time. Judicious use of some low-dose opiates (perhaps some oxycodone or hydromorphone) would be useful for his dyspnea. * Palliative Care will continue to follow the patient during this hospitalization. . Time Spent Total Floor Time (mins): 79 Face to Face Time (mins): 45 >50% Counseling/Coord of Care: Yes Thank you for the opportunity to participate in the care of Mr. Goodwin. Attestation To help prompt me to consider important information that might be impacting today's encounter and assessment, information from prior notes written by myself or my colleagues may have been "brought forward" into today's note. My signature on this note, however, is an attestation that I personally performed the exam, history, and/or decision-making noted today, and, unless otherwise indicated, the interactions with patient, family, and staff as well as the review of records all occurred today. I also attest that the listed assessment and stated plan reflect my best clinical judgment today based on the combination of historical information, prior notes, and today's exam/ interactions. When time spent is documented, it refers only to time spent today by the signer, or if indicated, combined time spent today by collaborating physician/nurse practitioner. Amelia Hemphill MD Feb 01, 2017 14:36
--- NOTE | 2017-02-25 13:18 | HHI.DS ---
Discharge Summary Admission Date Jan 29, 2017 at 18:01 Discharge Date: Feb 01, 2017 Admitting Diagnosis NSTEMI, CHF, dyspnea, renal insufficiency (1) NSTEMI (non-ST elevated myocardial infarction) ICD Code: I21.4 Diagnosis: Principal (2) CHF (congestive heart failure) ICD Code: I50.9 Diagnosis: Principal (3) Lactic acidosis ICD Code: E87.2 Diagnosis: Principal (4) Lung mass ICD Code: R91.8 Diagnosis: Secondary (5) Hypotension ICD Code: I95.9 Diagnosis: Principal (6) PNA (pneumonia) ICD Code: J18.9 Diagnosis: Principal (7) Hypoxia ICD Code: R09.02 Diagnosis: Principal (8) Pancytopenia ICD Code: D61.818 Diagnosis: Secondary (9) Renal insufficiency ICD Code: N28.9 Diagnosis: Secondary Procedures none Brief History - From Admission This is an 81-year-old male with w/ a PMH of HTN, Hyperlipidemia and CHF ( Unknown EF) who was brought to the ER by EMS secondary to AMS and SOB. History difficult to obtain from patient. Per EMS, family noted patient to have progressive SOB throughout the day. No reported fever, chills or chest pain. On arrival, O2 reportedly 70% on RA, currently 95% on 4L NC. BP 108/68, HR 73, Afebrile. While in ER, transient episode of hypotension w/ BP 80's systolic. WBC 3.7. Platelets 92. Hgb 12.5, no previous labs for comparison. Creatinine 2.55. Lactic Acid 2.8. Trop 1.76. BNP 3224. INR 1.5. U/a negative. Noted to have lower extremity edema, LE Doppler negative for DVT. CXR with basilar consolidation, effusions and possible loculated effusion versus mass right lung base. Dr. Hamilton consulted by ER physician, recommended holding off on anticoagulation for the moment. Imaging Last Impressions Chest CT 01/30/17 0000 Signed Impressions: Service Date/Time: Monday, January 30, 2017 08:08 - CONCLUSION: 1. Anasarca and bilateral pleural effusions. 2. Bilateral parenchymal infiltrates and consolidations. 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 KDino Germain MD Lower Extremity Ultrasound 01/29/17 1644 Signed Impressions: Service Date/Time: Sunday, January 29, 2017 17:12 - CONCLUSION: Normal examination. Benny Sharp MD Chest X-Ray 01/29/17 1644 Signed Impressions: Service Date/Time: Sunday, January 29, 2017 16:53 - CONCLUSION: Basilar consolidation, effusions and possible loculated effusion versus mass right lung base. Ranjith Ortiz MD PE at Discharge GENERAL: elderly male, in no apparent distress. CARDIOVASCULAR: Regular rate and regular rhythm without murmurs, gallops, or rubs. RESPIRATORY: Clear to auscultation. Breath sounds equal bilaterally. No wheezes , rales, or rhonchi. GASTROINTESTINAL: Abdomen soft, non-tender, nondistended. Normal, active bowel sounds MUSCULOSKELETAL: Extremities without clubbing, cyanosis, or edema. NEURO: Awake and alert. Hospital Course 1. elevated troponin; likely due to sepsis and renal insufficiency. cardiology consult appreciated; recommended conservative treatment; continue aspirin, coreg and statin. 2. acute on chronic systolic CHF: clinically worse today; EF 10-15%- started back on Lasix- continue coreg- no RAYMOND-I due to renal insufficiency. 3. acute respiratory failure duet to PNA/CHF: O2 sat 70's on arrival, currently stable on 2L/min NC. continue Rocephin/Zithro . neb treatment- blood cultures negative so far. 4. Hypotension: Resolved. 5. Pancytopenia: Will monitor. Hold anticoagulation in light of thrombocytopenia. 6. Renal Insufficiency with unknown duration- will monitor for now. 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 8. DVT Prophylaxis: SCD/Teds. 9. consult PT poor prognosis considering his low EF and multiple comorbidities. hospice was consulted. Pt Condition on Discharge: Fair Discharge Disposition: Hospice/Med Facility Discharge Time: <= 30 minutes Discharge Instructions DIET: Follow Instructions for: Heart Healthy Diet Activities you can perform: Weight Bearing as Barbara Hobbs MD February 25, 2017 13:18
== END 2017-02-01 22:05 | disposition hospice, inpatient (51) | DRG 871 ==
LOC: NEPE 15:38 → NEDA 18:01 → HCIN 22:08
PROVIDERS: ADMIT Hospitalist; ATTEND Hospitalist
DX: A41.9 Sepsis, unspecified organism (principal); I21.4 Non-ST elevation (NSTEMI) myocardial infarction; J96.01 Acute respiratory failure with hypoxia; G93.40 Encephalopathy, unspecified; I50.23 Acute on chronic systolic (congestive) heart failure; J18.9 Pneumonia, unspecified organism; N18.4 Chronic kidney disease, stage 4 (severe); D61.818 Other pancytopenia; I13.0 Hypertensive heart and chronic kidney disease with heart failure and stage 1 through stage 4 chronic kidney disease, or unspecified chronic kidney disease; I42.0 Dilated cardiomyopathy; E87.2 Acidosis; F03.90 Unspecified dementia, unspecified severity, without behavioral disturbance, psychotic disturbance, mood disturbance, and anxiety; E86.0 Dehydration; E78.5 Hyperlipidemia, unspecified; I25.10 Atherosclerotic heart disease of native coronary artery without angina pectoris; Z95.1 Presence of aortocoronary bypass graft; Z87.891 Personal history of nicotine dependence; Z66 Do not resuscitate; Z51.5 Encounter for palliative care; I71.2 Thoracic aortic aneurysm, without rupture
CPT/HCPCS: 71010; 71250; 76937; 80048; 80053; 81001; 82550; 82552; 83605; 83735; 83880; 84484; 85007; 85025; 85027; 85610; 85730; 87040; 93005; 93306; 93971; 94640; 94664; 96374; 96375; J0456; J0696; J1940; J2270; J7030; J7040; J7050